=== PATIENT | male | born 1935 | race Caucasian/White ===

== ENCOUNTER 2016-06-22 14:00 | Inpatient (IN) | payer MEDICARE, BC ==
[~2016-06-22] VITALS: Ht 172.7 cm; Wt 82.1 kg
--- NOTE | ~2016-06-22 | HP ---
PATIENT'S NAME: TRESSA COFFEY [facility] AGE: 81 Y [address] ROOM: G[address] [place], [place] [address] LOCATION[facility] ADMIT DATE: 06/22/2016 History & Physical DISCHARGE DATE: FAMILY PHYSICIAN: PHYSICIAN, UNKNOWN ATTENDING PHYSICIAN: Chrissie Denise DATE OF SERVICE: HISTORY OF PRESENT ILLNESS: Mr. Coffey is an 81-year-old male patient whom I first saw in April in [facility] for congestive heart failure, severe LVH, ejection fraction of 30%, moderate , mild AR, moderate pulmonary hypertension with pulmonary pressures in the mid 50s. He has had a catheterization in [place] in 2014, which showed mild coronary artery disease to moderate coronary artery disease and severely increased LVEDP. He has not been most compliant with his medications. When I saw him, I offered to admit him to [place], but he did not want to do so and he was hospitalized in [place] and was diuresed. Since then, he had gone home a couple of times having been readmitted. Last time in May when I saw him in the hospital, he had at that time made up his mind to become a hospice patient. Today, he comes to the clinic saying that he wants to revoke that hospice patient status and wants to try and improve his cardiac condition the best we can as he says he is "miserable." He admits to having shortness of breath and he is in functional class 4. He has no chest pains. He denies any paroxysmal nocturnal dyspnea or orthopnea. His echo did show possible presence of pressure overload of the RV. He has been orthopneic for a number of years. He has had a lot of swelling in his ankles for at least 2 years. He is lightheaded and at times falls over when his blood pressures are too low. He denies any palpitations even though he has been on chronic atrial fibrillation. The patient has a history of hypertension. He quit smoking 10 years ago. He is not a diabetic. He has elevated cholesterol, but has no family history of premature coronary artery disease. He denies RI, angina, or nitroglycerin use. There is no history of rheumatic fever or heart murmur. He does have atrial fibrillation. MEDICATIONS: His current list of medications includes: 1. Milk of magnesia. 2. Hyoscyamine 0.125 mg sublingually for excessive secretion. 3. Dulcolax 10 mg suppositories. PATIENT'S NAME: TRESSA COFFEY [facility] AGE: 81 Y [address] ROOM: [address] [place], [place] [address] LOC[facility] ADMIT DATE: 06/22/2016 History & Physical DISCHARGE DATE: FAMILY PHYSICIAN: PHYSICIAN, UNKNOWN ATTENDING PHYSICIAN: Chrissie Denise 4. Aldactone 25 mg a day. 5. Carvedilol 25 mg half a tablet twice a day. 6. Allopurinol 300 mg a day. 7. Prednisone 10 mg once a day. 8. Levothyroxine 0.075 mg once a day. 9. Prochlorperazine 10 mg 1 tablet every 6 hours p.r.n. 10. Morphine sulfate p.r.n. 11. Tylenol p.r.n. 12. Benadryl p.r.n. 13. Digoxin 0.125 mcg daily. 14. Lasix 40 mg 1-1/2 daily and 40 mg at noon. ALLERGIES: NONE. PAST MEDICAL HISTORY: 1. Gout. 2. Appendicectomy. 3. 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 4. History of diphtheria. SOCIAL HISTORY: He lives by himself. He denies abusing alcohol, he quit drinking alcohol 20 years ago. His appetite and weight have been poor. Sleep is poor. FAMILY HISTORY: No premature coronary artery disease. REVIEW OF SYSTEMS: A 12-point review of systems reveal the following positives: 1. Corrective lenses. 2. Bilateral cataract implants. 3. Hypothyroidism. 4. Sneezing and allergies. 5. History of itching. PHYSICAL EXAMINATION: VITAL SIGNS: His blood pressure is 120s/80s, heart rate is in the 70s and irregular, respirations are 20, and afebrile. HEENT: Normal. NECK: Supple. No JVD, thyromegaly, lymphadenopathy, or carotid bruit. HEART: PMI is not well located. First and second heart sounds are irregular. There are no added sounds or murmurs. CHEST: Clear to auscultation. ABDOMEN: Soft and nontender. PATIENT'S NAME: COFFEY, TRESSA D [facility] AGE: 81 Y [address] ROOM: [address] [place] [address] [facility] ADMIT DATE: 06/22/2016 History & Physical DISCHARGE DATE: FAMILY PHYSICIAN: PHYSICIAN, UNKNOWN ATTENDING PHYSICIAN: Chrissie Denise EXTREMITIES: Reveal bilateral severe edema with blistering and weeping. CENTRAL NERVOUS SYSTEM: Appears to be intact. ASSESSMENT: 1. Severe volume overload due to congestive heart failure. 2. Ejection fraction of 30%. 3. Mild coronary artery disease. 4. 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 RECOMMENDATION: The patient wants to have his hospice status revoked and wants to have something done about his congestive heart failure and see if he can feel better as he is very miserable now. I told him that he can anticipate some improvement, but to what extent he will improve is difficult to tell. If he wants to come in, I can put him in [facility] and do our best to slowly diurese him and get most of the fluid out making sure his kidneys does not get any worse. Once medications are readjusted, we will then have to consider BiV- ICD or ICD placement given his low EF. His EKG does show complete right bundle-branch block which is probably not optimal for BiV devices. MD SIENA SHAY/jerry /[id number] D: [id number] T: [id number] HISTORY & PHYSICAL
--- NOTE | ~2016-06-22 | CATH ---
Cardiac Diagnostic + PCI Report Demographics Patient Name ERLINDA Morrow Gender Male Date of 1935 Age 81 year(s) Patient Number [id number] Date of Study 06/30/2016 Visit Number [id number] Room Number G6[address] [place] [id number] Ht 172.72 cm Wt 82.1 kg Referring Howie Primary Physician Physician Chrissie NAVA Performing [place] Secondary Physician Physician Jen NAVA Diagnostic [facility] Assisting Physician Physician Jen NAVA Interventional [facility] Physician [employer] Engineer Physician Jen NAVA Findings and Conclusions Diagnostic Findings and Conclusion 1. Severe symptomatic (Bicuspid AV) with dilated ascending aortic aneurysm 5.6 cm. AMOR 0.7 cm2, low gradient, low flow AV stenosis, SV 17, and no contractile reserve on dobutamine stress echo. 2. NYHA Class IV. 3. Recurrent CHF admissions refractory to medical treatment. Diagnostic Recommendations BAV, elderly patient with numerous comorbidities, not an ideal candidate for SAVR. If he responds well to BAV, will then w/u for TAVR. Interventional Findings and Conclusion 1. S/P BAV using zmed balloon 22/5 mm: Mean gradient decreased from 21-6 mmHg. 2. Patient asystolic post BAV recovered in 10 minutes. Interventional Recommendations 1. Will leave temporary pacemaker overnight. 2. Anemia prior to procedure - getting PRBC's x 2 units. 3. Observe in ICU overnight. 4. Continue aggressive medical therapy for CHF. Thank you Dr. Denise for allowing us to participate in the care of Mr. George. Procedure Description The patient was brought to the diagnostic cardiac catheterization-EP laboratory in the fasting, non-sedated state. Informed consent was obtained in the written and verbal form after the risks and benefits were explained. The patient had no further questions and agreed to proceed. The planned puncture-incision site(s) were shaved and prepped with Chloroprep and draped in the usual sterile manner. Conscious sedation and pain control medications were delivered by a registered nurse under physician guidance. Surface ECG rhythm, blood pressure measurement, and pulse oximetry were monitored throughout the procedure. Arterial access. The access site was infiltrated with lidocaine. The vessel was entered with the Seldinger technique. A sheath was advanced into the vessel and used for catheter placement. Perclose(s) was advanced into the artery and deployed. These are to be tied at the end of the procedure. Venous access. The access site was infiltrated with lidocaine. The vessel was entered with the Seldinger technique. A sheath was advanced into the vessel and used for catheter placement. Temporary pacing. Pacing was achieved from the right ventricular apex. Threshold verification and amplitude adjustment were performed. The temporary pacemaker was sutured, left in place and a sterile dressing was applied at the end of the procedure. Aortic valvuloplasty. Following this an AL1 catheter was advanced into the ascending aorta using the 0.35 J-wire and the J-wire was withdrawn. A straight-tipped fixed core wire was used to cross the aortic valve in a retrograde fashion and the AL1 catheter was advanced into the left ventricle and the straight tipped wire was withdrawn. Following this an exchange length Amplatzer Super Stiff wire with the shape of the left ventricular apex was advanced into the left ventricle through the AL1 and the AL1 catheter was withdrawn. For proper positioning of the wire at the LV apex without inducing sustained ventricular tachycardia, a pigtail was used and the pigtail was withdrawn. Following this an aortic balloon was placed across the aortic valve. Rapid pacing was started at the rate of 160 beats per minute and absence of 2:1 block was confirmed. The pulsed-wave pressures of less than 40 mm was achieved, rapid inflation of the balloon was performed and the balloon was stabilized across the aortic valve. After the balloon dilatation the gradient was then measured by Echo. Following this, both the balloon and the wire were withdrawn from the left ventricle and withdrawn from the body. With the help of the [id number] technique. Arterial Hemostasis: The sheath(s) was removed. Perclose(s) were tied and hemostasis was achieved. The patient was transferred to the nursing floor with continuous monitoring via cart accompanied by a nurse. The patient left the laboratory in stable condition. Diagnostic Cath Status: Urgent Procedure Procedure Type Diagnostic procedure:Angiography:, [facility] PCI procedure:Structural Heart:, Valvuloplasty:, Aortic, Support:, Temp Pacemaker Indications: Heart Failure and Aortic stenosis by Echo. The procedure was explained in detail to the patient. Risks, complications and alternative treatments were reviewed. Written consent was obtained. Medications Reviewed with Patient prior to Procedure. Angiographic Findings Dominance: Right Procedure Data Procedure Date Date: 06/30/2016Start: 09:31 AMEnd: 10:31 AM Entry Locations - Retrograde Percutaneous access was performed through the Right Femoral artery (Primary location). A 6 Fr sheath was inserted. This was exchanged for a 12 Fr sheath. Hemostasis was successfully obtained using Perclose ProGlide (Trinh). Closure Comments: Perclosed by Dr. Mattson and Edwin Earl, RT.. - Antegrade Percutaneous access was performed through the Right Femoral vein. A 6 Fr sheath was inserted. Hemostasis was successfully obtained using Suture. Closure Comments: Sutured in by Krupa Wright, RT.. Procedure Medications Order and Administration + + + +--------+ !Time !Medication !Dosage !Route ! + + + +--------+ 06/30/2016 09:11 AM !Oxygen !2 l/min ! ! + + + +--------+ 06/30/2016 09:15 AM !Versed !1 mg !I.V. ! + + + +--------+ 06/30/2016 09:19 AM !Fentanyl !50 mcg !I.V. ! + + + +--------+ !06/30/2016 09:38 AM !Versed !1 mg !I.V. ! + + + +--------+ !06/30/2016 09:38 AM !Fentanyl !25 mcg !I.V. ! + + + +--------+ !06/30/2016 09:42 AM !Oxygen !4 l/min !NC ! + + + +--------+ !06/30/2016 09:44 AM !Oxygen !6 l/min !NC ! + + + +--------+ !06/30/2016 09:50 AM !Heparin (ACC_3) !5000 units !I.V. ! + + + +--------+ !06/30/2016 10:07 AM !Protamine !43 mg !I.V. ! + + + +--------+ !06/30/2016 10:09 AM !Fentanyl !25 mcg !I.V. ! + + + +--------+ !06/30/2016 10:16 AM !Oxygen !4 l/min !NC ! + + + +--------+ Devices Used - A5 Fr. BS AL1 Diag. Catheterwas used for:LV Pressures. Contrast Material - Isovue 26811 ml Fluoroscopy Time: Diagnostic: 4:30 minutes. Total: 4:30 minutes. Fluoroscopy Dose: Diagnostic: 203 mGy. Total: 203 mGy. Estimated Blood Loss: 20 ml. Medical History Performed Procedures and Imaging Results - Stress echocardiogramwas performed. Results were: Positive. Risk/Extent of ischemia was: High risk. Allergies - Sulfa. Risk Factors The patient risk factors include:hypertension, Newly diagnoseddiabetes mellitus, last creatinine: 1.9 mg/dl, creatinine clearance: 35.41 ml/min, dyslipidemia and prior heart failure . Admission Data Admission Date: 06/22/2016 Admission Time: 03:29 PM Admit Source: Transfer [facility] Insurance Payors: Medicare. Admission Medications + +------+------+ + + + + !Medication !Dosage!Times !Last !Last !Administered !Comments ! ! ! !Per !Delivery !Delivery ! ! ! ! ! !Day !Date !Time ! ! ! + +------+------+ + + + + !Statin ! ! ! ! !Yes ! ! !(any) ! ! ! ! ! ! ! + +------+------+ + + + + !Beta ! ! ! ! !Yes ! ! !Hillary ! ! ! ! ! ! ! !(any) ! ! ! ! ! ! ! + +------+------+ + + + + Clinical Evaluation Leading to Procedure - There were no CAD presentation symptoms. - There were no anginal symptoms. Anti-anginal medications were prescribed during the past two weeks. The medication is: Beta Blockers. - The patient has been in a state of heart failure within the past two weeks. - The patient's heart failure status was assessed as NYHA Class IV, with CHF symptoms of SMITH. - The reason for the patient's lab manager visit is evaluation of cardiomyopathy and/or evaluation of left ventricular systolic dysfunction. Hemodynamics Condition: Rest O2 Consumption: Estimated: 225.01Heart Rate: 72 bpm Pressures (mmHg) +-----+ + !Site !Pressure ! +-----+ + !LV !145/15 ,19 ! +-----+ + !LV !141/16 ,21 ! +-----+ + !AO !126/55 (85) ! +-----+ + !AO !78/3 (41) ! +-----+ + !AO !98/49 (67) ! +-----+ + !AO !128/59 (85) ! +-----+ + !AO !140/71 (98) ! +-----+ + Shunts Oxygen Values O2 Capacity 116.96 O2 Consumption 225.01 Signatures dtt: JEN MEDINA dtd: 06/30/16 0931 Physician Self Edit
--- NOTE | ~2016-06-22 | ECHO ---
Transthoracic Echocardiography Report (TTE) Demographics Patient Name TRESSA COFFEY Date of Study 06/22/2016 Patient Number [id number] Visit Number [id number] Date of 1935 Room Number G6313 Gender Male Number Age 81 year(s) Referring Bookbinder Apprentice Drake MENDOZAT, RDCS Physician Neida Physician Interpreting Howie Dickens MD Manager Solution Physician Supervising Ordering Howie Dickens MD, MD/MLP Physician Nurse Stress Classified Advertising Supervisor Conclusions Contractility Score Summary Hypokinesis of the Mid infero-septal, the Basal trent-septal and the Basal infero-septal segments. Summary The estimated left ventricular ejection fraction is 35% without WMAs.Severe concentric left ventricular hypertrophy.Normal internal dimension. Mildly-moderately reduced right ventricular function. The left atrium is mildly dilated. The right atrium is mildly dilated. Mild mitral regurgitation by color Doppler. There is moderate aortic stenosis by the Continuity Equation. The peak velocity is 2.57 m/s, the mean gradient is 15 mmHg, and the valve area based on the continuity equation is 0.98 cm2, stroke volume index is 43.69 ml/m2. Trivial AR. Mild tricuspid regurgitation by color Doppler. VA. The aortic root appears mildly dilated. The maximum diameter measures 4.1 cm. Procedure Type of Study TTE procedure:2D Echocardiogram, M-Mode, Doppler , Color Doppler. Procedure Date Date: 06/22/2016 Start: 04:43 PM Study Location: Echo Lab Technical Quality: Adequate visualization Indications:Non-ischemic cardiomyopathy. Appropriate Use Criteria: 9 Patient Status: Routine HR: 51 bpm BP: 128/65 mmHg Allergies - No known allergies. M-Mode/2D Measurements LV Diastolic Dimension: 3.6 cm LV Systolic Dimension: 3.16 cm LV Septum Diastolic: 2.4 cm LV PW Diastolic: 1.65 cm AO Root Dimension: 4.1 cm Cardiac Output: 2.23 l/min AV Cusp Separation: 0.8 cm RV Diastolic Dimension: 2.47 cm LA volume: 71 ml LVOT: 2.2 cm RV Base: 3.21 cm LVOT VTI: 11.5 cm RV Mid: 3.24 cm LV Stroke volume: 43.69 ml TAPSE: 1.06 cm TDI-S': 9.58 cm/s Doppler Measurements AV Peak Velocity: 2.31 m/s MV Peak E-Wave: 0.82 m/s AV Peak Gradient: 21.34 mmHg AV Mean Gradient: 15 mmHg MV P1/2t: 62 msec LVOT Peak Velocity: 0.49 m/s TR Velocity:2.41 m/s PV Peak Velocity: 0.67 m/s TR Gradient:23.23 mmHg PV Peak Gradient: 1.77 mmHg Estimated RAP:10 mmHg Estimated PASP: 33.23 mmHg Estimated RVSP: 33 mmHg Findings Left Ventricle Severe concentric left ventricular hypertrophy with moderate to severely reduced EF of about 35% without WMAs.LV internal dimension is normal. Right Ventricle Mildly-moderately reduced right ventricular function. Left Atrium Mildly dilated LA by visual assessment. Right Atrium The right atrium is mildly dilated. Mitral Valve Mild mitral regurgitation by color Doppler. Aortic Valve The aortic valve is moderately sclerotic. There is trivial aortic regurgitation by color Doppler. There is moderate aortic stenosis by the Continuity Equation. The peak velocity is 2.57 m/s, the mean gradient is 15 mmHg, and the valve area based on the continuity equation is 0.98 cm2, stroke volume index is 43.69 ml/m2. Tricuspid Valve Mild tricuspid regurgitation by color Doppler. Pulmonic Valve Mild pulmonic valve regurgitation by color Doppler. Pericardial Effusion No evidence of pericardial effusion. Miscellaneous The aortic root appears mildly dilated. The maximum diameter measures 4.1 cm. Pleural Effusion Pleural effusion present. Contractility Score LV regional wall motion:(0-Non visualized 1-Normal 2-Hypokinesis 3-Akinesis 4-Dyskinesis 5-Aneurysm) Signature dtt: Chrissie Denise dtd: 06/22/16 1643 Physician Self Edit
--- NOTE | ~2016-06-22 | CON ---
PATIENT'S NAME: TRESSA COFFEY [facility] AGE: 81 Y [address] ROOM: [place] [address] LOCATION: GPCU ADMIT DATE: 06/22/2016 Consultation DISCHARGE DATE: FAMILY PHYSICIAN: PHYSICIAN, UNKNOWN ATTENDING PHYSICIAN: Chrissie Denise DATE OF CONSULTATION: 06/24/2016 REFERRING PHYSICIAN: Naeem Killian MD PALLIATIVE CARE REFERRAL LOCATION: [facility]. This is a palliative care referral for goals of care and patient and family support. HISTORY OF PRESENT ILLNESS: This 81-year-old male was admitted on 06/22/2016 with increasing shortness of breath. He is a known patient of Dr. Denise and has decompensated heart failure. He has severe LVH, ejection fraction of 30%, moderate , mild AR, and moderate pulmonary hypertension. Pulmonary pressures in the mid-50s. He had a catheterization in [place] in 2014 that showed mild coronary artery disease, moderate coronary artery disease, and severely increased LVEDP. The patient was recently admitted to hospice due to not wanting to have a lot of aggressive treatments done, but became more short of breath and feeling terrible and had seen Dr. Denise and wanted to see if something could be done to help his shortness of breath. So, he was admitted on 06/22/2016 for diuresing. He is currently on a Lasix drip and 2 vasopressors for hypertension. He denies any pain or shortness of breath at rest. No short of breath with activity. Denies any abdominal pain. No problems with diarrhea. Some problems with constipation. The patient is a poor historian, forgetful. PAST MEDICAL HISTORY: Chronic systolic heart failure, gout, essential hypertension, and COPD. ALLERGIES: NONE. HOME MEDICATIONS: 1. Milk of magnesia. 2. Hyoscyamine 0.125 mg sublingual for excessive secretions. PATIENT'S NAME: TRESSA COFFEY [facility] AGE: 81 Y [address] ROOM: [place] [address] LOCATION: GPCU ADMIT DATE: 06/22/2016 Consultation DISCHARGE DATE: FAMILY PHYSICIAN: PHYSICIAN, UNKNOWN ATTENDING PHYSICIAN: Chrissie Denise 3. Dulcolax 10 mg suppository. 4. Aldactone 25 mg daily. 5. Carvedilol 25 mg half tab twice a day. 6. Allopurinol 300 mg daily. 7. Prednisone 10 mg daily. 8. Levothyroxine 0.075 mg daily. 9. Compazine 10 mg 1 tab every 6 hours p.r.n. nausea. 10. Morphine sulfate p.r.n. 11. Tylenol p.r.n. 12. Benadryl p.r.n. 13. Digoxin 0.125mcg daily. 14. Lasix 40 mg 1-1/2 tabs daily in the a.m. and 40 mg at noon. SOCIAL HISTORY: Never . He has 2 sisters. Sister, Estefani, is his medical power of business dean. She lives in [place]. No alcohol use. Quit drinking 20 years ago. History of chewing tobacco. FAMILY HISTORY: Poor historian on family history. Sister stated heart disease in mother and father. REVIEW OF SYSTEMS: A complete review of systems was done and is negative except as mentioned in HPI and listed below. GASTROINTESTINAL: Appetite fair. He states he is hungry, but does not eat much, just drinks liquids and is forgetful if he ate. He states he has problems with constipation. Last bowel movement was 06/23/2016. PSYCHIATRIC: Forgetful, unable to recall. Date, he thinks is in the . Thought he was in [place], but then recalled that he was in [place]. Unable to recall sisters' names. Sister states normally he is somewhat forgetful, but is oriented to time and place. PHYSICAL EXAMINATION: GENERAL: This is an 81-year-old, frail, ill appearing male. Alert and oriented to name, not place and time. Answers questions slowly, hard to stay focused. VITAL SIGNS: Temperature 97.6, pulse 79, respirations 16, blood pressure 96/65, O2 saturation is 95% on oxygen 1 L, he is 5 feet 8 inches, weighs 187 pounds with a BMI of 28.2. HEENT: Normocephalic and atraumatic. Sclerae are nonicteric. Conjunctivae are pale pink. Mouth is pink and moist without exudate. Tongue is slightly coated with white patches. No patches noted on cheeks. No soreness. RESPIRATORY: Clear and diminished bilaterally. Breath sounds are even and regular, unlabored at rest. PATIENT'S NAME: TRESSA COFFEY [facility] AGE: 81 Y [address] ROOM: [address] [place] [address] LOCATION: GPCU ADMIT DATE: 06/22/2016 Consultation DISCHARGE DATE: FAMILY PHYSICIAN: PHYSICIAN, UNKNOWN ATTENDING PHYSICIAN: Chrissie Denise CARDIAC: S1, S2 without murmurs or bruits. 2+ lower extremity edema. ABDOMEN: Rounded, slightly firm. Tender in right upper quadrant with palpitation. NEUROLOGIC: GROSSLY intact. Follows commands. MUSCULOSKELETAL: Appropriate range of motion. EXTREMITIES: No cyanosis or deformities. PSYCHIATRY: Palliative performance scale is 40%, mainly in chair or bed. Total care, unable to do any activity. Extensive disease. Intake is reduced, minimal to sips. Conscious level is drowsy with some periods of confusion. IMPRESSION: Dyspnea, weakness, fatigue, and confusion. PLAN: 1. Met with the patient. The patient is very fatigued, forgetful. Does state that he wanted to come to the hospital to get help, so he can breathe easier. I did talk with sister, Estefani, who is the medical power of business dean. She is coming on Tuesday. She has a good understanding of what is going on with her brother and is a good support for him. Answered questions and concerns. 2. Code status and advanced directives: The patient is currently DO NOT RESUSCITATE/DO NOT INTUBATE. A copy of advance directive is on the chart with sister, Estefani Castro, is his medical power of business dean. Answered questions and concerns. Encouraged sister to call if need support. Thank you for allowing me to assist with this patient and family. Total time was 45 minutes with 40 minutes for counseling and coordination of care. ENA LEY NP FOR MD LENKA MACHUCA/jerry /[id number] d: 06/25/16 0953 t: 07/12/16 1100, CONSULTATION REPORT
--- NOTE | ~2016-06-22 | DS ---
PATIENT'S NAME: TRESSA GEORGE [facility] AGE: 81 Y [address] ROOM: [place] [address] LOCATION: GPCU ADMIT DATE: 06/22/2016 Discharge Summary DISCHARGE DATE: 07/07/2016 FAMILY PHYSICIAN: Physician, Unknown ATTENDING PHYSICIAN: Chrissie Denise PRINCIPAL DISCHARGE DIAGNOSES: End-stage systolic congestive heart failure. SECONDARY DIAGNOSES: 1. Nonischemic cardiomyopathy with the EF of 30% documented prior to admission. 2. Coronary artery disease, mild. 3. Cardiogenic shock. 4. 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 5. Hyperkalemia. 6. Anasarca. 7. Left pleural effusion status post chest tube. 8. Bullous impetigo. 9. Metabolic encephalopathy. 10. Atrial fibrillation. 11. Thrombocytopenia. 12. Normocytic anemia. 13. Chronic steroid dependent. CONSULTATIONS: 1. Hematology, Dr. Naeem Killian for anemia and thrombocytopenia of uncertain etiology on 06/25/2016. 2. Palliative Care, Madeleine Carter, on 06/24/2016. 3. Cardiothoracic Surgery for pleural effusion, Dr. Fidencio Markham, on 06/28/2016. 4. Nephrology, Dr. Mcneill for elevated BUN and creatinine. 5. Hospitalist, on 06/23/2016. PROCEDURES: 1. Left thoracentesis, 06/28/2016 with productive of 1100 mL of yellow tinged serous fluid. 2. On 07/02/2016, insertion of 14-Mongolian left chest tube. BRIEF HISTORY: Mr. George is an 81-year-old, male who is a patient known to Dr. Denise from the [facility] with his history of congestive heart failure, severe left ventricular hypertrophy, and EF of 30%, moderate aortic stenosis, mild aortic regurg and moderate pulmonary hypertension with pulmonary pressures in the mid 50s. The patient had been on hospice after admissions to the hospital in [place] where he was diuresed for PATIENT'S NAME: TRESSA GEORGE [facility] AGE: 81 Y [address] ROOM: [place] [address] LOCATION: GPCU ADMIT DATE: 06/22/2016 Discharge Summary DISCHARGE DATE: 07/07/2016 FAMILY PHYSICIAN: Physician, Unknown ATTENDING PHYSICIAN: Chrissie Denise fluid overload caused by his heart failure and perhaps some medical noncompliance with medication. He became a hospice patient in May,, but presented to the [place] [facility] on 06/22/2016 requesting admission in attempt to improve his cardiac status because he was "miserable." However despite efforts here at diuresis, his fluid status did not significantly improve. When I saw the patient on Tuesday, his anasarca was severe. His potassium was elevated to 5.2, his creatinine was 2.2. He had white count of 13.3 with increase in bands of 11%. At that time, he had increasing lethargy. His oxygen saturation was going down and he was found to have high white blood cell count in the urinalysis and he was started empirically on Rocephin for possible urinary tract infection. However, the urine culture was negative. In terms of his acute kidney injury with chronic kidney disease, stage III, he became oliguric over the last several days and there was a plan to start albumin if the patient shows further care. Because of his confusion, his sisters who is power of immigration attorney discussed this with the palliative care nurse who has been on board for most of the hospitalization and was decided that he would be transferred back to [place] on comfort measures and hospice care. He was placed on comfort care just today at about 3 o'clock in the afternoon. INSTRUCTIONS AT DISCHARGE: 1. Diet: As tolerated. 2. Activity: Bed rest. DISCHARGE MEDICATIONS: Include: 1. Levothroid 25 mcg daily. 2. Colace 100 mg p.o. b.i.d. 3. Tylenol every 4 hours p.r.n. 4. Atropine drops sublingual p.r.n. excess secretions. 5. Dulcolax suppository p.r.n. 6. Benadryl p.r.n. 7. Guaifenesin 600 mg p.o. b.i.d., p.r.n. 8. Haldol 1 mg subcu for delirium. 9. Levsin 0.125 mg sublingual every 4 hours as needed. 10. Ativan 0.5 mg sublingual p.r.n. restlessness and breathlessness. 11. Milk of magnesia 30 mL every day p.r.n. constipation. 12. Roxanol 5 mg sublingual every hour p.r.n. pain. 13. Morphine sulfate 1-2 mg subcu every hour p.r.n. for pain or shortness of breath. 14. Compazine suppository 25 mg every 12 hours p.r.n. nausea and vomiting. 15. Zinc oxide topically p.r.n. for skin care or Calmoseptine. 16. Coreg 3.125 mg p.o. b.i.d. PATIENT'S NAME: TRESSA GEORGE [facility] AGE: 81 Y [address] ROOM: [place] [address] [facility] ADMIT DATE: 06/22/2016 Discharge Summary DISCHARGE DATE: 07/07/2016 FAMILY PHYSICIAN: , Unknown ATTENDING PHYSICIAN: Chrissie Denise 17. Prednisone 10 mg daily. 18. Spironolactone discontinued. 19. Lasix discontinued. 20. Ipratropium albuterol nebs every 4 hours p.r.n. dyspnea. 21. Eucerin for topical skin care p.r.n. CONDITION AT DISCHARGE: Poor. Greater than 30 minutes was spent in the discharge process. Thank you very much for your assistance with this dictation. ANIKA LANDEROS MD LM/jerry /[id number] d: 07/08/16722 t: 07/16/16 1810, DISCHARGE SUMMARY
--- NOTE | ~2016-06-22 | ECHO ---
Stress Echocardiography Report Demographics Patient Name TRESSA COFFEY Date of Study 06/29/2016 Patient Number [id number] Visit Number [id number] Date of 1935 Room Number G6313 Gender Male Number Age 81 year(s) Referring Howie Dickens Continuous Drier Helper Ramiro Newell RVT Physician MD Aly Torres Physician Interpreting Howie Dickens Composition Molder Physician Supervising Howie Dickens Ordering Howie Dickens MD/KYLIE NAVA Physician Nurse Gregor Nicolas Stress Road Cutter Leidy Andrews RN Conclusions Summary Low flow ,low gradient low EF for dobutamine evaluation of the valve. Pre dobutamine :M mm Hg. Dobutamine 20 ellen:M mm Hg. MAPSE :9 mm. Values most consistent with severe to critical true valvular . Procedure Type of Study Stress procedure:Pharm Stress Echo w/o Contrast. Procedure Date Date: 06/29/2016 Start: 01:32 PM Study Location: Inpatient Portable Technical Quality: Adequate visualization Indications:AAA. Appropriate Use Criteria: 9 Patient Status: Routine Allergies - No known allergies. Risk Factors - The patient's risk factor(s) include: atrial fibrillation, diabetes mellitus and dyslipidemia. Stress Predicted HR: 139 bpm Procedure Medications - Dobutamine I.V. 5 mcg/kg/min. - Dobutamine I.V. 10 mcg/kg/min. - Dobutamine I.V. 20 mcg/kg/min. - dobutamine discontinued . M-Mode/2D Measurements LVOT: 2.1 cm LVOT VTI: 10.1 cm LV Stroke volume: 34.96 ml Doppler Measurements AV Peak Velocity: 2.59 m/s AV Peak Gradient: 26.83 mmHg AV Mean Gradient: 19 mmHg LVOT Peak Velocity: 0.6 m/s Signature dtt: Chrissie Denise dtjoyce: 06/29/16 1332 Physician Self Edit
--- NOTE | ~2016-06-22 | CON ---
PATIENT'S NAME: BRITTON GEORGE [facility] AGE: 81 Y [address] ROOM: [address] [place], [place] [address] LOCATION: GPCU ADMIT DATE: 06/22/2016 Consultation DISCHARGE DATE: FAMILY PHYSICIAN: PHYSICIAN, UNKNOWN ATTENDING PHYSICIAN: Chrissie Denise REFERRING PHYSICIAN: Naeem Killian MD This is a consult to Dr. Denise. Britton George is an 81-year-old man with uncharacterized anemia and thrombocytopenia. HISTORY OF PRESENT ILLNESS: Obtained from Mr. George, whose history was of very dubious veracity upon admission, but has been more helpful as his symptoms have been better controlled; from his sister, Ms. Castro; from records forwarded from the [facility]; from visiting with Dr. Malik Kennedy; and from reviewing the patient's [facility] chart. The patient was in the [facility] and has been there since mid April. The patient was evaluated by Dr. Denise for options regarding treatment of his congestive heart failure. The patient was on the Hospice Service at the time Dr. Denise saw him. The patient was not independent. The patient's state of health has declined precipitously in the last 6 months. Prior to that, the patient was independent and lived in his own home. He was retired. He was a lifelong bachelor. His medical problems were not particularly disabling, although his power of commercial litigation attorney was not closely acquainted with his medical history. In any case, the patient saw Dr. Denise in consultation at his [facility]. Dr. Denise had seen the patient 2 months earlier and documented the presence of severe systolic congestive heart failure with an ejection fraction of 30%, moderate aortic stenosis, mild aortic regurgitation, and moderate pulmonary hypertension in the mid 50s. Dr. Denise acknowledged that the patient had mild coronary artery disease. Dr. Denise made the point the patient had been hospitalized in [place] and underwent diuresis at that time, but had been readmitted on a couple of occasions and was placed on hospice. The patient made the point to Dr. Denise that he wanted to revoke the hospice status and wanted to improve his cardiac condition because he was miserable with dyspnea at rest. The patient denied orthopnea, although he had been orthopneic for a number of years. The patient had anasarca. Dr. Denise admitted him to [facility] for diuresis, a dobutamine infusion, and consideration of ICD placement. When Dr. Denise admitted the patient, the platelet count was 48,000, the white count was 9.6 with 79% segs and 15% bands, hemoglobin was 10.9, the MCV was 87. On 04/03/2014, upon hospitalization in [facility], the platelets were 167,000, white PATIENT'S NAME: BRITTON GEORGE [facility] AGE: 81 Y [address] ROOM: [place] [address] LOCATION: GPCU ADMIT DATE: 06/22/2016 Consultation DISCHARGE DATE: FAMILY PHYSICIAN: PHYSICIAN, UNKNOWN ATTENDING PHYSICIAN: Chrissie Denise count was 8800, hemoglobin was 14.6, MCV was 94, and the platelets were 167,000. Dr. Kennedy forwarded records from [facility]. The patient's anemia was first noted in March 2016. His platelets were 171,000 on 05/25/2016, but they fell to 117,000 on 05/26/2016. Neither the patient nor his power of commercial litigation attorney are aware of any history of blood abnormalities. ACTIVE MEDICAL PROBLEMS, CHRONIC AND DIAGNOSED: 1. Systolic heart failure as noted above. 2. Moderate aortic stenosis and aortic regurgitation as well as moderate pulmonary hypertension. 3. ASHD "mild to moderate.". 4. Tobacco. The patient chewed tobacco in the past, but has abstained. 5. Hypothyroidism. 6. Gout. The patient apparently had podagra 1-1/2 years ago and has been on allopurinol. 7. Paroxysmal atrial fibrillation. 8. Bifascicular block with a left anterior hemiblock and right bundle branch block. 9. GERD. 10. Essential arterial hypertension. 11. ? Subacute peroneal thrombosis in the past. 12. ?Dementia due to documented severe cerebral atrophy and periventricular senescent white matter disease on CAT scan of the brain. 13. 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 14. ASVD with a thoracic aortic aneurysm at the root of the thoracic aorta, 5/7 cm, >2.8 ratio to BSA, therefore, all other things equal, a surgical candidate. ACUTE MEDICAL ILLNESSES (RESOLVED), PAST SURGERIES, INJURIES: 1. In 1953 - appendectomy. 2. In 2014 - atrial fibrillation with rapid ventricular response, requiring hospitalization for treatment of congestive heart failure. 3. Diphtheria. 4. Apparent history of amoebic dysentery in [facility]. MEDICATIONS: Upon hospitalization; 1. Acetaminophen. 2. Allopurinol 300 mg daily. 3. Dulcolax. 4. Carvedilol 6.25 mg p.o. b.i.d. 5. Digoxin 0.125 mg p.o. daily. 6. Diphenhydramine. 7. Eucerin. 8. Furosemide 40 mg daily. 9. Hyoscyamine 0.125 mg p.o. every 4 hours. 10. Levothyroxine sodium 0.075 p.o. q.h.s. 11. Lisinopril 2.5 mg p.o. daily. 12. Milk of magnesia 30 mL p.o. b.i.d. 13. Morphine sulfate 10 mg every hour p.r.n. for pain or dyspnea. 14. Prednisone 10 mg daily. PATIENT'S NAME: BRITTON GEORGE [facility] AGE: 81 Y [address] ROOM: [place] [address] LOCATION: [facility] ADMIT DATE: 06/22/2016 Consultation DISCHARGE DATE: FAMILY PHYSICIAN: PHYSICIAN, UNKNOWN ATTENDING PHYSICIAN: Chrissie Denise 15. Prochlorperazine 10 mg p.o. every 6 hours. 16. Spironolactone 25 mg daily. ADVERSE REACTIONS TO MEDICATIONS, TRANSFUSIONS, ALLERGIES: 1. Sulfa. 2. The patient has no documented history of transfusions. TOBACCO: The patient chewed tobacco, but has abstained. ALCOHOL: The patient abstained from alcohol now, but drank only moderately in the past. FAMILY HISTORY: Negative for hematologic disorders or cancer. SOCIAL HISTORY: The patient was born and raised in [place], [facility]. The patient has retired for 2 years. He went to [facility] in [facility] after he attended [employer] in the 1960s. 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 The patient lived in [facility], [place], and [place]. He had a history of dysentery. He is not a churchgoer. He has a sister, who is his power of commercial litigation attorney and lives in [place]; he has a sister in [place], [place]; and a sister in [place]. He is not on speaking terms with another sister. He is a lifelong bachelor. He is not a orthodox goer. REVIEW OF SYSTEMS: The patient states on one occasion he has been troubled with severe pruritus for 8 months. On another occasion, he states he has had pruritus for decades, since he was in [place], and this has been investigated, but the cause has never been elucidated. PHYSICAL EXAMINATION: VITAL SIGNS: Pulse 76, blood pressure 130/65, respiratory rate 18, temperature 97.9, height 68 inches, and weight 84.2 kg (186 pounds, BMI 28.2 kg/m2). GENERAL: Well-developed, overweight, unkempt, 81-year-old male, in mild distress with tachypnea. HEENT: The teeth are in poor repair. LYMPH NODES: None palpable. NECK: Without JVD or carotid bruits. SKIN: Nevi, angiomas, acrochordons. CHEST: Decreased breath sounds with basilar crackles. CV: Regular rhythm with no murmurs or bruits. There may be an S3 gallop. BREASTS: Bilateral gynecomastia. PATIENT'S NAME: BRITTON GEORGE [facility] AGE: 81 Y [address] ROOM: [place] [address] LOCATION: [facility] ADMIT DATE: 06/22/2016 Consultation DISCHARGE DATE: FAMILY PHYSICIAN: PHYSICIAN, UNKNOWN ATTENDING PHYSICIAN: Chrissie Denise ABDOMEN: No masses, tenderness, or megaly. GENITALIA AND RECTAL: Leary catheter in place. EXTREMITIES: Edema to the elbows and thighs. The patient has compression devices in place. SKIN: Xerodermatitis. The patient appears to have neurotic excoriations, which are quite pronounced around the right knee and in the left upper quadrant of the abdomen. NEURO: Strength 4/5 throughout. Deep tendon reflexes not assessed. The patient has a fluctuating level of consciousness. He asked the examiner to get him a [place] [employer]. The patient knew his name and birthday and knew he was in [place], but he not did know the year or the president or the month. He was unable to respond to most questions about his medical situation. IMPRESSION: 1. Uncharacterized thrombocytopenia and normocytic anemia, which has developed since March 2014. Indeed, the thrombocytopenia has just developed over the past month. 2. The patient may have end-stage systolic heart failure. He was on hospice. The patient is not entirely oriented and his power of commercial litigation attorney was concerned about his situation and wanted to be informed. It is reasonable to involve Palliative Care to assist. 3. Many of his medicines are sometimes associated with thrombocytopenia (furosemide, lisinopril, and spironolactone), but only rarely. 4. Given the patient's pruritus and hematologic abnormalities, one thinks of the possibility of a lymphoproliferative disorder or mastocytosis. 5. The first question is how to address how much testing we should do in this gentleman with severe systolic congestive heart failure, severe enough to land him on the Hospice Service. We will need to visit with him when his [id number] is present. RECOMMENDATIONS: Diagnostic: 1. CBC, reticulocyte count, ferritin, iron TIBC, folate, B12. 2. Hemoccult stools. 3. Serum tryptase. 4. Visit with the patient and his power of commercial litigation attorney when she is present. Treatment: 1. No antineoplastic therapy and no therapy addressing his hematologic abnormalities at this point. The thrombocytopenia is mild. PATIENT EDUCATION: Visited with the patient's [id number] about his situation. PATIENT'S NAME: BRITTON GEORGE [facility] AGE: 81 Y [address] ROOM: [address] [place] [id number] LOCATION: GPCU ADMIT DATE: 06/22/2016 Consultation DISCHARGE DATE: FAMILY PHYSICIAN: PHYSICIAN, UNKNOWN ATTENDING PHYSICIAN: Chrissie Denise MD ALLYSON STINSONB/modl /[id number] CC: MD joyce Butler: 06/26/16 0101 t: 06/27/16 1315, CONSULTATION REPORT
--- NOTE | ~2016-06-22 | CON ---
PATIENT'S NAME: TRESSA COFFEY [facility] AGE: 81 Y [address] ROOM: [address] [address] LOCATION: GPCU ADMIT DATE: 06/22/2016 Consultation DISCHARGE DATE: FAMILY PHYSICIAN: PHYSICIAN, UNKNOWN ATTENDING PHYSICIAN: Chrissie Denise DATE OF CONSULTATION: 07/01/2016 REFERRING PHYSICIAN: Naeem Killian MD REQUESTING PHYSICIAN: Chrissie Denise MD REASON FOR CONSULTATION: Elevated BUN and creatinine. HISTORY OF PRESENT ILLNESS: The patient is an 81-year-old white male with a history of chronic congestive heart failure related to systolic dysfunction. His EF is 20%-25%. He also has aortic stenosis and aortic regurgitation. The patient came in the hospital with increasing shortness of breath, and he was diagnosed with left- sided pleural effusion. The patient underwent valvuloplasty yesterday. I noticed that his creatinine was 1.3-1.8 in 2014. Creatinine was 1.8 on admission and today is 1.9. Dr. Denise was concerned and asked me to see this gentleman for a Nephrology consultation. He denies taking any non- steroidals or CLAY-2 inhibitors at home. His outpatient medication did include lisinopril 5 mg a day. He is also on furosemide 40 mg a day. REVIEW OF SYSTEMS: GENERAL: He denies any fever, chills, or rigors. HEENT: Denies any sore throat or sinus congestion. CARDIOVASCULAR: Denies any chest pain. He has dyspnea on exertion. RESPIRATORY: Denies any cough or sputum production. GI: Denies any abdominal pain or nausea. He has poor appetite. : Denies any dysuria or frequency. MUSCULOSKELETAL: Denies any joint pain or swelling. SKIN: Denies rash or pruritus. IMMUNOLOGIC: Denies any allergies or hay fever. LYMPHATICS: Denies any lymph node enlargement. HEMATOLOGIC: Denies any easy bruising. ENDOCRINE: Denies any heat or cold intolerance. PAST MEDICAL HISTORY: Chronic congestive heart failure, gout, essential hypertension, COPD, left- sided pleural effusion, aortic regurgitation, aortic stenosis, and pulmonary hypertension. PATIENT'S NAME: TRESSA COFFEY [facility] AGE: 81 Y [address] ROOM: [address] [place], [place] [id number] LOCATION: GPCU ADMIT DATE: 06/22/2016 Consultation DISCHARGE DATE: FAMILY PHYSICIAN: PHYSICIAN, UNKNOWN ATTENDING PHYSICIAN: Chrissie Denise SURGICAL HISTORY: Appendectomy. ALLERGIES: NO KNOWN DRUG ALLERGIES. MEDICATIONS: 1. Zosyn 3.375 g IV q.8 hours. 2. Colace 100 mg twice a day. 3. Prednisone 15 mg twice a day. 4. Fergon 325 mg a day. 5. Digoxin 125 mcg a day. 6. Levothyroxine 75 mcg a day. 7. Lipitor 40 mg a day. 8. Lopressor 6.25 mg every day. 9. MiraLax p.r.n. 10. Protonix 40 mg a day. 11. Vitamin D 1000 International Units a day. 12. Zyloprim 300 mg a day. 13. NovoLog by sliding scale. SOCIAL HISTORY: The patient lives in [place], [place]. He chewed tobacco one can per day for the last 40 years, quit 34 years ago. He smoked for 45 years. Quit drinking 17 years ago. FAMILY HISTORY: No family history of kidney disease or dialysis. PHYSICAL EXAMINATION: GENERAL: An elderly white male lying in the hospital bed, not in acute distress. VITAL SIGNS: Temperature 96.8, pulse is 93, systolic blood pressure 144 and diastolic 66. HEENT: Head normocephalic. Pupils are round and equal. Normal eyelids and conjunctivae. Oral cavity clear. Loss of teeth. NECK: Trachea is central. No thyromegaly. No bruit. Unable to evaluate jugular venous pulsation. HEART: Sounds are audible in all the areas without any gallop or murmur. There is no pericardial rub. Pulses irregularly regular. LUNGS: Clear to auscultate anteriorly. No intercostal retraction. ABDOMEN: Soft and nontender. Could not palpate any liver or spleen. EXTREMITIES: He has no clubbing or cyanosis. The patient has multiple blisters on both the lower extremities. There is sign of bleeding and PATIENT'S NAME: TRESSA COFFEY [facility] AGE: 81 Y [address] ROOM: [address] [address] LOCATION: GPCU ADMIT DATE: 06/22/2016 Consultation DISCHARGE DATE: FAMILY PHYSICIAN: PHYSICIAN, UNKNOWN ATTENDING PHYSICIAN: Chrissie Denise excoriation on the area. He also has 2+ edema up to his ankle. SKIN: No sign of vasculitis. LYMPHATICS: Did not examine lymphatics. HIGHER PSYCHIATRIC FUNCTION: Normal speech and memory. LABORATORY DATA: Blood work shows sodium 136, potassium 4.7, chloride 100, bicarbonate 27, BUN of 48, creatinine 1.9, calcium 8.0, albumin 2.7, bilirubin 2.1. Urinalysis shows 1+ protein, wbc 20-50, rbc 50-100. Uric acid level of 4.4. ASSESSMENT: 1. Acute on chronic kidney injury. Most likely this is again worsening of his cardiac status. The patient came in with increasing shortness of breath and decompensated heart failure. He also underwent valvuloplasty procedure. 2. Stage 3 chronic kidney disease. Most likely from cardiorenal syndrome. His hemoglobin A1c is 7.9, but he has been on prednisone. He has no history of diabetes. The patient has minimal proteinuria. 3. Aortic stenosis. 4. Pulmonary hypertension. 5. Chronic congestive heart failure from systolic dysfunction. 6. Coronary artery disease. 7. History of left pleural effusion. PLAN: Creatinine is up to 1.9. Baseline creatinine is probably around 1.5. The patient has congestive heart failure from systolic dysfunction. Please consider putting him back on low-dose LELO inhibitor like lisinopril 5 mg with close monitoring of his creatinine and potassium. I will check his urine for biiapkl-ij-zmygjpfgms ratio, follow renal function very closely, and we will also check a renal ultrasound. I did advice the patient to avoid all non- steroidals or CLAY-2 inhibitors. I did tell him that his kidney function is less than 50% of what it should have been for his age and sex. I would like to thank Dr. Denise for allowing me to participate in this patient's care. M TIAGO CRUMP MD PATIENT'S NAME: TRESSA COFFEY [facility] AGE: 81 Y [address] ROOM: [place] [address] [facility] ADMIT DATE: 06/22/2016 Consultation DISCHARGE DATE: FAMILY PHYSICIAN: PHYSICIAN, UNKNOWN ATTENDING PHYSICIAN: Chrissie Denise/jerry /[id number] CC: MD Miller Kumari PA d: 07/01/168 t: 07/04/16 1058, CONSULTATION REPORT
--- NOTE | ~2016-06-22 | OR ---
PATIENT'S NAME: TRESSA [facility] AGE: 81 Y [address] ROOM: [place] [address] LOCATION: GPCU ADMIT DATE: 06/22/2016 OR/Procedure Report DISCHARGE DATE: FAMILY PHYSICIAN: PHYSICIAN, UNKNOWN ATTENDING PHYSICIAN: Chrissie Denise SURGEON: Fidencio Faria DO SIGNAL WIRER: DATE OF PROCEDURE: 06/28/2016 PREOPERATIVE DIAGNOSIS: Left pleural effusion. POSTOPERATIVE DIAGNOSIS: Left pleural effusion. PROCEDURE: Left thoracentesis. BRIEF HISTORY: Mr. George is an 81-year-old white male with the above-noted diagnosis. He has been marked with ultrasound for the thoracentesis. This reji was then sterilely prepped and draped and 1% lidocaine was used to infiltrate the area. A stab incision was made in the infiltration spot and thoracentesis catheter inserted over the needle and the catheter advanced and the needle withdrawn, connected to the Vacutainer bottle and 1100 mL of yellow tinged serous fluid was evacuated without difficulty. The patient remained stable throughout the procedure with stable saturations. The catheter was removed without difficulty and chest x-ray is pending. Sterile dressing was applied. He tolerated the procedure well. FIDENCIO FARIA DO MCB/modl /[id number] d: 06/29/161926 t: 06/30/16 0743, OPERATIVE SUMMARY
--- NOTE | ~2016-06-22 | OR ---
PATIENT'S NAME: TRESSA GEORGE [facility] AGE: 81 Y [address] ROOM: [place] [address] LOCATION: GPCU ADMIT DATE: 06/22/2016 OR/Procedure Report DISCHARGE DATE: FAMILY PHYSICIAN: PHYSICIAN, UNKNOWN ATTENDING PHYSICIAN: Chrissie Denise SURGEON: Fidencio Faria DO BABY ATTENDANT: DATE OF PROCEDURE: 07/02/2016 PREOPERATIVE DIAGNOSIS: Recurrent left pleural effusion. POSTOPERATIVE DIAGNOSIS: Recurrent left pleural effusion. PROCEDURE: Insertion of left chest tube 14-Nauruan. REFERRING: Chrissie Denise MD BRIEF HISTORY: Mr. George is an 81-year-old white male with the above-noted diagnosis. I performed a previous thoracentesis. This has recurred in a relatively short time. He is not a good candidate for pleurodesis given his heart function and renal function. Therefore, we are doing a chest tube placement. Informed consent has been obtained. The area is marked with ultrasound. 1% lidocaine was used to infiltrate skin wheal and deeper tissues. The pleural space was accessed without difficulty and a guidewire fed without resistance. Stab incision made at the base of the needle and the needle was withdrawn. Soft tissue dilator was placed over the guidewire and then withdrawn and then the 14-Nauruan catheter was placed over the guidewire and the guidewire dilator removed. Chest tubes placed to suction. Serosanguineous fluid was evacuated nicely. The patient tolerated the procedure well and was secured in position with 2-0 silk and a sterile dressing was applied. Chest x-ray is pending for placement. FIDENCIO FARIA DO MCB/modl /[id number] d: 07/02/161942 t: 07/03/16 1027, OPERATIVE SUMMARY
--- NOTE | ~2016-06-22 | OR ---
PATIENT'S NAME: BRITTON COFFEY [facility] AGE: 81 Y [address] [place] [facility] [place] [place], [place] [address] LOCATION: GPCU ADMIT DATE: 06/22/2016 OR/Procedure Report DISCHARGE DATE: FAMILY PHYSICIAN: PHYSICIAN, UNKNOWN ATTENDING PHYSICIAN: Chrissie Denise SURGEON: Chrissie Denise MD CONSUMER LENDING MANAGER: DATE OF PROCEDURE: 06/25/2016 PROCEDURE PERFORMED: Central line placement for aquapheresis. INDICATIONS: Britton does not seem to be responding to intravenous diuretic infusions along with dobutamine. He has what appears to be nonischemic cardiomyopathy, hypertrophic cardiomyopathy, and decreased ejection fraction. The plan is to use Aquadex. DESCRIPTION OF PROCEDURE: After obtaining informed consent, the patient was prepped and draped using standard sterile precautions. 1% Xylocaine was used to obtain local anesthesia over the left subclavian site. Modified Seldinger technique was used to place a guidewire into the IVC. Next, a small incision was made, and a dilator was first introduced, after which the triple-lumen catheter with 2 vascular ports and possibly one port for possible pacemaker was introduced. It was sewn in place and the catheter position checked with x- ray before starting his Aquadex. The patient tolerated the procedure well. There were no complications noted. MD SIENA SHAY/jerry /[id number] d: 06/29/16 1520 t: 07/19/16 1451, OPERATIVE SUMMARY
--- NOTE | ~2016-06-22 | CON ---
PATIENT'S NAME: TRESSA COFFEY [facility] AGE: 81 Y [address] ROOM: [address] [place], [place] [address] LOCATION: GPCU ADMIT DATE: 06/22/2016 Consultation DISCHARGE DATE: FAMILY PHYSICIAN: PHYSICIAN, UNKNOWN ATTENDING PHYSICIAN: Chrissie Denise REFERRING PHYSICIAN: Naeem Killian MD Consult from Dr. Denise for evaluation of the patient for relative hypoadrenocorticism. HISTORY OF PRESENT ILLNESS: This is an 81-year-old male who was admitted to the service of Dr. Denise yesterday for what appears to be decompensated heart failure. The patient is a poor historian. When asked, reason for his admission, he responds with I do not know. The patient is on two pressors currently for hypotension, dobutamine and also dopamine. When asked, the patient denies fever. He denies headache. Denies pain anywhere. Denies abdominal pain. Denies chest pain. He reported he had one episode of watery stool this morning. Denies cough. Denies urinary symptoms. The patient also reports some purpuric rashes that appeared around his right knee involving the upper part of the thigh and proximal part of the right leg. REVIEW OF SYSTEM: All the system were asked and were negative except as documented in the HPI. PAST MEDICAL HISTORY: Includes chronic systolic heart failure, gout, essential hypertension, COPD. PAST SURGICAL HISTORY: Includes appendectomy, also dyslipidemia. SOCIAL HISTORY: Lives by himself. He denies use of alcohol. Stopped smoking. Stopped drinking alcohol about 20 years ago and he stopped smoking about 10 years ago. FAMILY HISTORY: No history of heart disease, cancer, diabetes in the family. PHYSICAL EXAMINATION: VITAL SIGNS: Temperature 98.0, pulse 108, respiratory rate 18, blood pressure 114/59, oxygen saturation 94% on room air. GENERAL: Reveals an elderly male who is alert, awake, not oriented to person alone, not in any form of respiratory distress or painful distress. NEUROLOGIC: Cranial nerves 2-12 are intact bilaterally. Sensory is intact bilaterally in both upper and lower extremities. Power is at least 3 in both upper extremity and 2 in both lower extremity. HEENT: Normocephalic, atraumatic. Pupils equal and reactive to light bilaterally. Pharynx is normal. Mucosa is moist. Ears, no obvious ear discharge or drainage. PATIENT'S NAME: TRESSA COFFEY [facility] AGE: 81 Y [address] ROOM: [address] [place], [place] [address] [facility] ADMIT DATE: 06/22/2016 Consultation DISCHARGE DATE: FAMILY PHYSICIAN: PHYSICIAN, UNKNOWN ATTENDING PHYSICIAN: Chrissie Denise NECK: Supple. No area of tenderness. No lymphadenopathy. CARDIOVASCULAR: Normal S1, S2. Tachycardia. CHEST: Decreased breath sounds in bilateral bases. ABDOMEN: Soft, nondistended. No area of tenderness. No palpable organomegaly. Positive bowel sounds with increased bowel sounds. EXTREMITIES: There is no joint swelling, erythema, or tenderness, but he has resolving bilateral lower extremity edema, also involving upper extremity. SKIN: He has what appears to be purpuric rash involving the skin around the knee and above the knee involving the distal 3rd of the right thigh and the proximal 3rd of the right leg. LABORATORY DATA: Troponin 0.371, proBNP 25786. Sodium 138, potassium 4.4, chloride 98, CO2 32, calcium 8.0, creatinine 1.5, BUN 53, magnesium 2.3. ASSESSMENT AND PLAN: This is an 81-year-old male who is admitted to service of Cardiology for decompensated heart failure. 1. Shock probably from cardiogenic shock. However, primary team has concerned for relative hypoadrenocorticism. We will check cortisol level random and we will start the patient on some hydrocortisone 50 mg q.8 hours IV. We will also rule out sepsis. We will check procalcitonin level and we will also check a UA and urine culture as well, and if the patient has a temperature spike, we will probably do blood cultures. Please note present on admission. 2. Skin lesion, appears vasculitic. We will check p-ANCA, c-ANCA, and also DERRELL, ESR, and CRP for further evaluation. 3. Thrombocytopenia, primary team present on admission. Primary team have called tire mold engraver. 4. Anasarca, present on admission. Management per primary team. 5. Acute on chronic systolic heart failure. Management per primary team. I would like to thank you for allowing me to take part in the care of this patient. MD GARRETT APPLE/crystall /[id number] d: 06/23/16 1820 t: 07/04/16 1619, CONSULTATION REPORT
--- NOTE | ~2016-06-22 | ENPV ---
Vascular Lower Extremities DVT Study Procedure Demographics Patient Name TRESSA COFFEY Date of Study 06/23/2016 Patient Number [id number] Gender Male Date of 1935 Age 81 Visit Number [id number] Height 68 Accession Number [id number] Weight 283.01 Referring Howie Dickens Interpreting Carlita Baires MD Physician Physician Physician Ordering Howie An/Sqq 89(V)15 Sonar System Journeyman Physician Chrissie NAVA Musical Instrument Mechanic Ramiro Newell T Aly Torres Conclusions Summary TECHNIQUE: The veins of the lower extremities on the right and the left were evaluated from the groin to the ankle using haq scale, compression, augmentation. Venous hemodynamics were evaluated with color flow and spectral Doppler. Findings: 1. The right lower extremity shows normal femoral vein and superficial femoral vein down to the popliteal level. Normal compressibility and augmentation. Poorly visualized posterior tibial and peroneal's on this side. Subacute thrombosis not excluded of the peroneal vein.. 2. The left lower extremity shows normal venous compressibility and augmentation from the groin to the ankle. No DVT or SVT noted in this extremity. IMPRESSION: Somewhat equivocal evidence for subacute thrombosis of the left peroneal veins. Otherwise negative study. Procedure Type of Study: Veins:Lower Extremities DVT Study, Venous Duplex Lower Extremity Bilateral. Appropriate Use Criteria:7 Allergies - No known allergies. Patient Status:Routine. Study Location:Inpatient Portable. Technical Quality:Limited visualization. - Preliminary reported to:Dr. Denise. Velocities are measured in cm/s ; Diameters are measured in cm Right Lower Extremities DVT Study Measurements Right 2D and Doppler Measurements + + + + +------+------+ + !Location !Visualized!Compressibility!Thrombosis!Signal!Reflux!Reflux ! ! ! ! ! ! ! !(sec) ! + + + + +------+------+ + !GSV Thigh !Yes !Yes !None !Phasic! ! ! + + + + +------+------+ + !Common !Yes !Yes !None !Phasic! ! ! !Femoral ! ! ! ! ! ! ! + + + + +------+------+ + !Prox !Yes !Yes !None !Phasic! ! ! !Femoral ! ! ! ! ! ! ! + + + + +------+------+ + !Mid Femoral!Yes !Yes !None !Phasic! ! ! + + + + +------+------+ + !Dist !Yes !Yes !None !Phasic! ! ! !Femoral ! ! ! ! ! ! ! + + + + +------+------+ + !Popliteal !Yes !Yes !None !Phasic! ! ! + + + + +------+------+ + !Gastroc !Yes !Yes !None ! ! ! ! + + + + +------+------+ + !PTV !Yes !Yes !None ! ! ! ! + + + + +------+------+ + !Peroneal !No !No !Sub-acute ! ! ! ! + + + + +------+------+ + Left Lower Extremities DVT Study Measurements Left 2D and Doppler Measurements + + + + +------+------+ + !Location !Visualized!Compressibility!Thrombosis!Signal!Reflux!Reflux ! ! ! ! ! ! ! !(sec) ! + + + + +------+------+ + !GSV Thigh !Yes !Yes !None !Phasic! ! ! + + + + +------+------+ + !Common !Yes !Yes !None !Phasic! ! ! !Femoral ! ! ! ! ! ! ! + + + + +------+------+ + !Prox !Yes !Yes !None !Phasic! ! ! !Femoral ! ! ! ! ! ! ! + + + + +------+------+ + !Mid Femoral!Yes !Yes !None !Phasic! ! ! + + + + +------+------+ + !Dist !Yes !Yes !None !Phasic! ! ! !Femoral ! ! ! ! ! ! ! + + + + +------+------+ + !Popliteal !Yes !Yes !None !Phasic! ! ! + + + + +------+------+ + !Gastroc !Yes !Yes !None ! ! ! ! + + + + +------+------+ + !PTV !Yes !Yes !None ! ! ! ! + + + + +------+------+ + !Peroneal !Yes !Yes !None ! ! ! ! + + + + +------+------+ + Signature dtt: Mono Zazueta dtd: 06/23/16 1315 Physician Self Edit
--- NOTE | ~2016-06-22 | ECHO ---
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 Mean gradient of 7 mmHg post BAV, pre was about 21 mmHg. Mild AI, not worse compared with prior imaging. NO pericardial effusion. Procedure Type of Study TTE procedure:Doppler , Color Doppler, Echo Limited w/o Contrast. Procedure Date Date: 06/30/2016 Start: 09:59 AM Study Location: Commercial Retoucher Technical Quality: Fair due to poor acoustical window. Indications:Post PTCA and Aortic stenosis. Patient Status: STAT Allergies - Sulfa. Doppler Measurements AV Peak Velocity: 1.67 m/s AV Peak Gradient: 11.16 mmHg AV Mean Gradient: 6 mmHg Contractility Score LV regional wall motion:(0-Non visualized 1-Normal 2-Hypokinesis 3-Akinesis 4-Dyskinesis 5-Aneurysm) Signature dtt: TOMASA MEDINA dtd: 06/30/16 0959 Physician Self Edit
--- NOTE | 2016-06-22 16:29 | NUR ---
Patient is 81 yo male admitted from [facility]. is resident of long term in [place]. patient refuses to answer questions. initially, refused to let staff start IV. the one in his right antecubital space apparently clotted off en route to hospital. patient has generalized edema. has small blood blister type looking spots on legs and arms that break and he bleeds. patient did agree to try an IV. attempted X 2 without success. patient refuses to answer questions. keeps his eyes closed when trying to talk to him. education not done at this time.
[2016-06-22 16:33] LABS: HEMATOCRIT 36.5 % (33.0-50.0); HEMOGLOBIN 10.9 g/dL (11.0-16.0); MCH 25.9 pg (27.0-34.0); MCHC 29.9 gm/dL (32.0-36.5); MCV 86.7 fl (83.0-98.0); RBC 4.21 M/uL (3.50-5.50); RDW-CV 28.7 % (11.9-14.6); WBC 9.6 K/uL (4.0-11.0)
[2016-06-22 16:35] LABS: PLATELET COUNT 48 K/uL (150-450)
[2016-06-22 16:49] LABS: ANION GAP 10.6 (10.0-19.0); CALCIUM 7.9 mg/dL (8.5-10.5); CREATININE 1.8 mg/dL (0.6-1.3); POTASSIUM 4.6 mMol/L (3.7-5.1)
[2016-06-22] MEDS ORDERED: COREG6.25 MG PO (17:03)
[2016-06-22] MEDS ORDERED: PRINIVIL (ZESTRI5 MG PO (17:04)
[2016-06-22] MEDS ORDERED: DELTASONE10 MG PO (17:05)
[2016-06-22] MEDS ORDERED: ZYLOPRIM300 MG PO (17:05)
[2016-06-22] MEDS ORDERED: ALDACTONE25 MG PO (17:06)
[2016-06-22] MEDS ORDERED: LANOXIN (DIGI125 MCG PO (17:06)
[2016-06-22] MEDS ORDERED: LASIX40 MG PO ×2 (17:07→17:08)
[2016-06-22] MEDS ORDERED: MORPHINE S100 MG/5 M PO (17:08)
[2016-06-22] MEDS ORDERED: TYLENOL325 MG PO (17:09)
[2016-06-22] MEDS ORDERED: LEVSIN/SL0.125 MG SL (17:10)
[2016-06-22] MEDS ORDERED: DIPHENHYDRAMINE25 MG PO (17:11)
[2016-06-22] MEDS ORDERED: TYLENOL650 MG R (17:11)
[2016-06-22] MEDS ORDERED: MILK OF MA400 MG/5 M PO (17:12)
[2016-06-22] MEDS ORDERED: COMPAZINE 10MG10 MG PO (17:12)
[2016-06-22] MEDS ORDERED: DULCOLAX10 MG R (17:12)
[2016-06-22] MEDS ORDERED: LEVOTHROID(SYN75 MCG PO (17:13)
[2016-06-22] MEDS ORDERED: MINERIN CREME454 GM TOP (17:16)
[2016-06-22] MEDS ORDERED: CALMOSEPTINE OI71 GM TOP (17:18)
[2016-06-22 17:20] LABS: BANDED NEUTROPHIL # 1.4 K/uL (0.0-0.1); BANDED NEUTROPHILS % 15 %; LYMPHOCYTE # 0.4 K/uL (0.8-4.0); LYMPHOCYTE % 4 %; MONOCYTE # 0.2 K/uL (0.0-1.0); SEGMENTED NEUTROPHIL # 7.6 K/uL (1.4-9.0); SEGMENTED NEUTROPHIL % 79 %
--- NOTE | 2016-06-22 18:44 | NUR ---
Significant Event: A/OX3, FORGETFUL AT TIMES. VSS ON 4L PER NC. REPOSITIONS SELF SLOWLY IN BED. IV STARTED TO L)FA. PT. IS COOPERATIVE WITH CARES AT TIMES, WILL REFUSE TO DO THINGS WHEN NOT WANTING TO MOVE AROUND IN BED OR STARTING MEDS. Follow up: CONINTUE WITH POC.
--- NOTE | 2016-06-23 04:14 | NUR ---
Significant events: Pt alert, oriented at times-disoriented to place and time. Refuses most cares. Answers orientations questions intermittently. IV dobutamine @ set rate of 2mcg/kg/min. SBP 100's. On RA. Repositioned as patient allows. Unable to initiate IV lasix d/t low pressures. 3+ edema, weeping throughout body. Foely in place with 950 out. Slept most of shift. Refused all HS meds.
[2016-06-23 04:57] LABS: ANION GAP 12.4 (10.0-19.0); CREATININE 1.5 mg/dL (0.6-1.3); POTASSIUM 4.4 mMol/L (3.7-5.1)
--- NOTE | 2016-06-23 15:59 | NUR ---
Reviewed Britton's chart and also talked with his RN Odalis Arevalo. She tells me that he was at [facility] in [place], [place] and he will most likely return there. I let her know that I would plan on seeing him tomorrow as well as updating [facility] as well. CM to continue to follow and assist.
--- NOTE | 2016-06-23 17:25 | NUR ---
Significant Event: PT. ALERT, ORIENTATED AT TIMES. VSS ON ROOM AIR, SBP 90-120'S. DOBUTAMINE DRIP INCREASED TO 2.5mcg/min, DOPAMINE DRIP STARTED & INCREASED TO 2mcg/min. DR. Christina WILL CALL LATER AROUND 1999 ON BLOOD PRESSURES & POSSIBLE RATE CHANGES WITH DRIPS. IV TO L)FA. NO COMPLAINTS OF PAIN. WORKED WITH PT/OT TODAY. VS SCAN DONE. LABS DRAWN. VENOUS DUPLEX DONE. UA/C&S SENT. NS @ 5mL/HR. PT. HAS SLEPT ON/OFF THROUGHOUT SHIFT. ATE BITES OF MEALS. COOPERATIVE WITH CARES, MEDS TODAY. Follow up: CONTINUE WITH POC.
[2016-06-23 18:09] LABS: BILIRUBIN URINE NEGATIVE (NEGATIVE); BLOOD URINE 50 /UL (NEGATIVE); COLOR URINE YELLOW (YELLOW); GLUCOSE URINE NEGATIVE (NEGATIVE); KETONE URINE NEGATIVE (NEGATIVE); LEUKOCYTES URINE 500 /UL (NEGATIVE); NITRITE URINE NEGATIVE (NEGATIVE); PROTEIN URINE 30 mg/dL (NEGATIVE); TURBIDITY URINE 1+ (CLEAR); UROBILINOGEN URINE NORMAL (NORMAL)
[2016-06-23 18:18] LABS: WBC URINE 20-50 #/HPF (NEGATIVE)
[2016-06-23 18:19] LABS: BACTERIA URINE MODERATE (NEGATIVE); EPITHELIAL URINE 0-2 #/HPF (NEGATIVE)
[2016-06-23 18:20] LABS: MUCUS URINE 1+ (NEGATIVE)
[2016-06-24 03:41] LABS: HEMATOCRIT 34.4 % (33.0-50.0); HEMOGLOBIN 10.5 g/dL (11.0-16.0); MCH 26.2 pg (27.0-34.0); MCHC 30.5 gm/dL (32.0-36.5); MCV 85.8 fl (83.0-98.0); RBC 4.01 M/uL (3.50-5.50); RDW-CV 28.1 % (11.9-14.6); WBC 8.8 K/uL (4.0-11.0)
[2016-06-24 03:45] LABS: INR - (THERAPEUTIC) 1.19 (0.92-1.07); PROTIME 12.5 SECONDS (9.8-11.4)
[2016-06-24 03:55] LABS: ANION GAP 10.4 (10.0-19.0); CALCIUM 8.1 mg/dL (8.5-10.5); CREATININE 1.3 mg/dL (0.6-1.3); POTASSIUM 4.4 mMol/L (3.7-5.1)
[2016-06-24 04:00] LABS: PLATELET COUNT 48 K/uL (150-450)
[2016-06-24 04:06] LABS: MAGNESIUM 2.3 mg/dL (1.8-2.6)
--- NOTE | 2016-06-24 04:36 | NUR ---
Significant Event: disoriented to place/time, cooperative, pleasant, does call out for help at times, SBP 80-110s, HR 70-100s remains in afib, 1L/O2 placed to keep sats >90% while sleeping, dopamine continues at 2 mcg/min, dobutamine at 2.5 mcg/min, lasix gtt started at 2235 at 5 mg/hr, gtt stopped at 2305 for SBP 80/40s, BPs stable now, up to chair with 2 assist pivot transfer, Rocephin started, Digoxin and 40 meQ of potassium given, repositioned Q2hr, alvarado had 575 ml out Follow up: check am labs, continue plan of care, palliative c/s
[2016-06-24 04:39] LABS: ABSOLUTE NEUTROPHIL CT (ANC) 8.4 K/uL (1.4-9.0); BANDED NEUTROPHIL # 2.1 K/uL (0.0-0.1); BANDED NEUTROPHILS % 24 %; LYMPHOCYTE # 0.4 K/uL (0.8-4.0); LYMPHOCYTE % 4 %; MONOCYTE # 0.1 K/uL (0.0-1.0); SEGMENTED NEUTROPHIL # 6.3 K/uL (1.4-9.0); SEGMENTED NEUTROPHIL % 71 %
--- NOTE | 2016-06-24 12:27 | NUR ---
Introduced self and CM role to Britton. I reviewed his chart and talked with his primary RN Odalis Arevalo before going in the room. Confirmed that Britton was living at [facility] prior to coming into [facility]. He was on Hospice services but revoked them to come back into the hospital. I talked with Britton about this and he did tell me that it was correct. He is planning on going back to [facility] when he is ready to dismiss from here. It is unclear at this time if he will go back skilled or on Hospice again. Odalis tells me that he will most likely be here a few days and then return back to [facility] next week. No other questions, needs or concerns. CM to continue to follow and assist.
--- NOTE | 2016-06-24 13:01 | NUR ---
A - DIETARY CONSULT RECEIVED D/T ALB 2.2. 3+ WEEPING EDEMA - VOLUME OVERLOAD. LIQUID STOOLS. DECREASED APPETITE. ENC PO INTAKE. HT: 68" WT: 184# BMI: 27.9 LABS: GLU 187, BUN/CR 45/1.3, ALB 2.2, CRP 9.41 MEDS: LASIX, ROCEPHIN, SYNTHROID, PROTONIX, BOWEL DIET: CARDIAC. INTAKE: BITES NEEDS: [id number] KCAL (20-25 KCAL/KG), 84-101 G PRO (1-1.2 G/KG), 2100 ML FLUID (25 ML/KG) D - INADEQUATE NUTRIENT INTAKE R/T DECREASED APPETITE AEB INTAKE RECORD. I - GOAL FOR INTAKE > 50% BY NEXT ASSESSMENT. WILL ADD ENSURE TID TO INC NUTRIENT INTAKE. M/E - WILL MONITOR INTAKE F/U IN 4-5 DAYS.
--- NOTE | 2016-06-24 17:00 | NUR ---
Significant Event: VSS ON ROOM AIR, SBP 90-120'S TODAY. REMAINS ON DOBUTAMINE DRIP @ 2.5mcg/min. & DOPAMINE DRIP @ 2mcg/min. WAS ABLE TO START LASIX DRIP TODAY FOR ABOUT 3HRS, CAN RESTART DRIP @ 10mg/HR WHEN SBP >105. PT. TRANSFERS 2 ASSIST TO CHAIR WITH WALKER/GAIT BELT. REPOSITIONED Q2HR TODAY. NO COMPLAINTS OF PAIN. BATH DONE TODAY. MODERATE LIQUID/MUSHY BM X2, C-DIFF-. ENA LEY SAW PT. TODAY & WROTE A NOTE. PTS SISTER SOUMYA WILL BE HERE ON TUESDAY. PT. ATE 50% OF LUNCH TODAY. WORKED WITH PT/OT. Follow up: MONITOR BLOOD PRESSURES.
--- NOTE | 2016-06-25 04:57 | NUR ---
Significant Event: Oriented to self, patient yells out for help, cooperative with RN, SBP 80-107, HR- 79-80s in afib, alvarado had 550 ml out, Dobutamine and Dopamine continue at same rates, Albumin given x3, patient had small incontinent liquid stool, pitting edema bilateral arms and legs, Lasix gtt not started for blood pressures Follow up: continue plan of care
--- NOTE | 2016-06-25 11:19 | NUR ---
reviewed student charting and on the floor from [id number] gio [id number]
--- NOTE | 2016-06-25 20:49 | NUR ---
Significant Event: Alert and oriented. Can be a little forgetful. Room air. SBP 90's and 110's. HR 70's and 80's. Heart rates dropped into the high 30's X 3. notified. +3 edema to right arm and bilateral legs. Yells out at times and can be a little impatient. Power glide/midline left upper arm, Dobunamine infusing at 2.5 mcg/min. Peripheral IV to anterior forearm, flushes well. Central line placed to upper left chest. Dark red, scabbed rash to right barber, knee and thigh. Up with heavy 2 assist, pivot transfer to chair. Had a few statements stating that the men in black will be here to get him soon. Pleasant and cooperative with cares. Follow up: Sister Estefani will be here on Tuesday.
[2016-06-25 21:51] LABS: HEMOGLOBIN 9.7 g/dL (11.0-16.0); MCH 25.8 pg (27.0-34.0); MCHC 29.4 gm/dL (32.0-36.5); MCV 87.8 fl (83.0-98.0); RBC 3.76 M/uL (3.50-5.50); WBC 10.1 K/uL (4.0-11.0)
[2016-06-25 21:54] LABS: PLATELET COUNT 57 K/uL (150-450)
[2016-06-25 22:00] LABS: INR - (THERAPEUTIC) 1.22 (0.92-1.07); PROTIME 12.8 SECONDS (9.8-11.4); PTT 25 SECONDS (25-32)
[2016-06-25 22:04] LABS: ANION GAP 10.6 (10.0-19.0); CALCIUM 8.5 mg/dL (8.5-10.5); CREATININE 1.3 mg/dL (0.6-1.3); POTASSIUM 3.6 mMol/L (3.7-5.1)
[2016-06-25 22:37] LABS: BANDED NEUTROPHIL # 2.9 K/uL (0.0-0.1); BANDED NEUTROPHILS % 29 %; LYMPHOCYTE # 0.8 K/uL (0.8-4.0); LYMPHOCYTE % 8 %; MONOCYTE # 0.3 K/uL (0.0-1.0); SEGMENTED NEUTROPHIL # 6.1 K/uL (1.4-9.0); SEGMENTED NEUTROPHIL % 60 %
[2016-06-26 05:17] LABS: BASOPHIL % 0.2 %; HEMATOCRIT 34.8 % (33.0-50.0); HEMOGLOBIN 10.2 g/dL (11.0-16.0); IMMATURE GRANULOCYTE # 0.3 K/uL (0.0-0.3); IMMATURE GRANULOCYTE % 3.4 %; LYMPHOCYTE # 0.6 K/uL (0.8-4.0); LYMPHOCYTE % 5.5 %; MCHC 29.3 gm/dL (32.0-36.5); MCV 88.5 fl (83.0-98.0); MONOCYTE # 0.5 K/uL (0.0-1.0); MONOCYTE % 4.8 %; NEUTROPHIL # (ANC) 8.6 K/uL (1.4-9.0); NEUTROPHIL % 86.1 %; NRBC % 0.2 /100WBC (0-0.00); PLATELET COUNT 64 K/uL (150-450); RBC 3.93 M/uL (3.50-5.50); RDW-CV 28.6 % (11.9-14.6)
[2016-06-26 05:29] LABS: ANION GAP 11.9 (10.0-19.0); CALCIUM 8.6 mg/dL (8.5-10.5); CREATININE 1.4 mg/dL (0.6-1.3); PHOSPHORUS 2.6 mg/dL (2.5-4.9); POTASSIUM 3.9 mMol/L (3.7-5.1)
[2016-06-26 05:36] LABS: TOTAL BILIRUBIN 1.8 mg/dL (0.0-1.5); TOTAL PROTEIN 5.4 g/dL (6.0-8.4)
--- NOTE | 2016-06-26 07:33 | NUR ---
Significant Event: AQUADEX INITIATED THIS SHIFT. UF RATE IS AT 50 ALL NIGHT. PT TOLERATING THIS WELL. R) ARM CONTINUES TO WEEP IN LARGE AMOUNTS ALL NIGHT. KERLIX APPLIED BUT HE SOAKED THROUGH THIS QUICKLY. INCONTINENT OF STOOL ALL NIGHT. HE WOULD USUALLY KNOW HE WAS GOING OR ABOUT 10 SECONDS BEFORE HE WENT. ALERT BUT YELLED OUT LOUDLY IF HE NEEDED ANYTHING. PT TURNED SELF FROM SIDE TO SIDE ALL NIGHT. Follow up:
[2016-06-26 08:18] LABS: BASOPHIL % 0.4 %; HEMATOCRIT 35.2 % (33.0-50.0); IMMATURE GRANULOCYTE # 0.4 K/uL (0.0-0.3); IMMATURE GRANULOCYTE % 4.5 %; LYMPHOCYTE # 0.6 K/uL (0.8-4.0); LYMPHOCYTE % 7.4 %; MCH 26.2 pg (27.0-34.0); MCHC 28.4 gm/dL (32.0-36.5); MCV 92.1 fl (83.0-98.0); MONOCYTE # 0.4 K/uL (0.0-1.0); MONOCYTE % 4.9 %; NEUTROPHIL # (ANC) 6.8 K/uL (1.4-9.0); NEUTROPHIL % 82.8 %; NRBC % 0.5 /100WBC (0-0.00); PLATELET COUNT 62 K/uL (150-450); RBC 3.82 M/uL (3.50-5.50); RDW-CV 28.7 % (11.9-14.6); WBC 8.2 K/uL (4.0-11.0)
[2016-06-26 12:12] LABS: BASOPHIL % 0.1 %; HEMATOCRIT 34.4 % (33.0-50.0); HEMOGLOBIN 10.2 g/dL (11.0-16.0); IMMATURE GRANULOCYTE # 0.2 K/uL (0.0-0.3); IMMATURE GRANULOCYTE % 2.7 %; LYMPHOCYTE # 0.6 K/uL (0.8-4.0); LYMPHOCYTE % 6.4 %; MCH 26.2 pg (27.0-34.0); MCHC 29.7 gm/dL (32.0-36.5); MCV 88.2 fl (83.0-98.0); MONOCYTE # 0.5 K/uL (0.0-1.0); MONOCYTE % 5.4 %; NEUTROPHIL # (ANC) 7.7 K/uL (1.4-9.0); NEUTROPHIL % 85.4 %; NRBC % 0.2 /100WBC (0-0.00); PLATELET COUNT 61 K/uL (150-450); RDW-CV 28.6 % (11.9-14.6)
[2016-06-26 16:49] LABS: HEMATOCRIT 33.6 % (33.0-50.0); HEMOGLOBIN 10.3 g/dL (11.0-16.0); MCH 26.3 pg (27.0-34.0); MCHC 30.7 gm/dL (32.0-36.5); MCV 85.7 fl (83.0-98.0); RBC 3.92 M/uL (3.50-5.50); RDW-CV 28.6 % (11.9-14.6); WBC 8.8 K/uL (4.0-11.0)
[2016-06-26 16:50] LABS: PLATELET COUNT 47 K/uL (150-450)
[2016-06-26 17:29] LABS: ABSOLUTE NEUTROPHIL CT (ANC) 8.2 K/uL (1.4-9.0); BANDED NEUTROPHIL # 0.6 K/uL (0.0-0.1); BANDED NEUTROPHILS % 7 %; LYMPHOCYTE # 0.4 K/uL (0.8-4.0); LYMPHOCYTE % 4 %; MONOCYTE # 0.3 K/uL (0.0-1.0); SEGMENTED NEUTROPHIL # 7.6 K/uL (1.4-9.0); SEGMENTED NEUTROPHIL % 86 %
--- NOTE | 2016-06-26 17:57 | NUR ---
PATIENT CONTINUES ON AQUADEX AT A UF OF 80 DR. Christian ORDERED 75 FOR UF BUT UF GOES UP BY 10. PATIENT IS STILL POSITIVE 979.7ML. UF BAG HAS NOT HAD TO BE EMPTIED YET. PATIENT HAS STOOD AT BEDSIDE TODAY X3 AND HAS DANGLED AT BEDSIDE X3. PLAN TO GET HIM IN RECLINER TOMORROW. SKIN IS STILL UNCHANGED FROM PREVIOUS SHIFTS. HEPARIN CONTINUES AT 900 UNIT/HOUR. PLAN TO CONINUE AQUADEX.
[2016-06-27 05:35] LABS: HEMATOCRIT 32.6 % (33.0-50.0); HEMOGLOBIN 9.6 g/dL (11.0-16.0); MCHC 29.4 gm/dL (32.0-36.5); MCV 88.3 fl (83.0-98.0); RBC 3.69 M/uL (3.50-5.50); RDW-CV 28.6 % (11.9-14.6); WBC 9.3 K/uL (4.0-11.0)
[2016-06-27 05:37] LABS: PLATELET COUNT 70 K/uL (150-450)
[2016-06-27 05:54] LABS: ANION GAP 12.7 (10.0-19.0); CALCIUM 8.3 mg/dL (8.5-10.5); CREATININE 1.6 mg/dL (0.6-1.3); POTASSIUM 4.7 mMol/L (3.7-5.1)
[2016-06-27 06:08] LABS: ABSOLUTE NEUTROPHIL CT (ANC) 7.5 K/uL (1.4-9.0); BANDED NEUTROPHIL # 0.6 K/uL (0.0-0.1); BANDED NEUTROPHILS % 6 %; LYMPHOCYTE # 1.4 K/uL (0.8-4.0); LYMPHOCYTE % 15 %; MONOCYTE # 0.4 K/uL (0.0-1.0); SEGMENTED NEUTROPHIL % 75 %
--- NOTE | 2016-06-27 16:49 | NUR ---
PATIENT CONTINUES ON AQUADEX TODAY AT A UF RATE OF 80. PATIENT IS TOLERATING WELL. PATIENT STATES HE FEELS BETTER TODAY. HAS DANGLED AT BEDSIDE AND HAS BEEN UP TO COMMODE TODAY.
--- NOTE | 2016-06-27 19:44 | NUR ---
Significant Event: PT MORE CONFUSED THIS SHIFT. MAKING "OFF" STATMENTS. STATES HE IS NOT FEELING WELL AND WANTS THE AMBULANCE CALLED. HE HAD 2 ENSURES AND SHORTLY AFTER THESE, HE STARTED HAVING LOOSE STOOLS. STILL YELLS OUT WHEN HE NEEDS ANYTHING. HE JUST KEEPS ASKING FOR SOMETHING TO DRINK. DENIES PAIN. REMAINS ON ROOM AIR. Follow up:
[2016-06-28 02:14] LABS: HEMATOCRIT 32.2 % (33.0-50.0); HEMOGLOBIN 9.6 g/dL (11.0-16.0); MCH 26.2 pg (27.0-34.0); MCHC 29.8 gm/dL (32.0-36.5); MCV 87.7 fl (83.0-98.0); PLATELET COUNT 78 K/uL (150-450); RBC 3.67 M/uL (3.50-5.50); RDW-CV 28.5 % (11.9-14.6); WBC 10.4 K/uL (4.0-11.0)
[2016-06-28 02:33] LABS: ANION GAP 11.3 (10.0-19.0); CALCIUM 8.8 mg/dL (8.5-10.5); CREATININE 1.6 mg/dL (0.6-1.3); POTASSIUM 4.3 mMol/L (3.7-5.1)
[2016-06-28 02:58] LABS: ABSOLUTE NEUTROPHIL CT (ANC) 7.8 K/uL (1.4-9.0); LYMPHOCYTE # 0.9 K/uL (0.8-4.0); LYMPHOCYTE % 9 %; MONOCYTE # 1.4 K/uL (0.0-1.0); SEGMENTED NEUTROPHIL # 7.8 K/uL (1.4-9.0); SEGMENTED NEUTROPHIL % 75 %
--- NOTE | 2016-06-28 05:22 | NUR ---
Significant Event: DENIES PAIN ALL NIGHT. AQUADEX RUNNING WITHOUT ISSUES. AT CURRENT TIME, PT IS NEGATIVE 234 ML. PT NOT COMPLAINING MUCH TO FEELING THIRSTY. HERNANDEZ PATENT WITH 182ML OF UO. REMAINS ON ROOM AIR BUT AT TIMES WILL DIP INTO THE 80s BUT COMES BACK UP QUICKLY. RESTING WELL IN BED ALL NIGHT. Follow up:
--- NOTE | 2016-06-28 11:24 | NUR ---
PATIENT OFF FLOOR FOR 1100 ASSESSMENT. WILL ASSESS WHEN PT IS RETURNED TO FLOOR.
--- NOTE | 2016-06-28 14:24 | NUR ---
A - NUT F/U. AQUADEX STARTED. 1-2+ EDEMA. DECREASED APPETITE. LABS: ACCUCHECK WNL->300, GLU 185, BUN/CR 42/1.6, ALB 3.0, TOT BILI 1.8. MEDS: PREDNISONE, SSI, FERGON, ZOSYN, SYNTHROID, BOWEL. DIET: DIABETIC, 2-3 GM SODIUM, 1500 ML FLUID. INTAKE: 25-50% ENSURE TID. NEEDS: [id number] KCAL, 84-101 G PRO. D - INADEQUATE NUTRIENT INTAKE R/T DECREASED APPETITE AEB INTAKE RECORD. I - GOAL FOR INTAKE > 50% BY NEXT ASSESSMENT. WILL CHANGE ENSURE TO GLUCERNA D/T DM DIET. M/E - WILL MONITOR INTAKE F/U IN 3-5 DAYS.
--- NOTE | 2016-06-28 14:44 | NUR ---
Call from JORDY Muller that Britton's sister had some questions and wanted to visit with me. I did go in and talk with Britton's sister in his room, he was out of the room for a procedure so he wasn't present during our conversation. His sister wanted to know if she could transfer him to a different SNF when he was ready to dismiss from our facility. She would prefer one here in [place], with [facility] being her first choice. I let her know that I would be happy to look into other SNF options for Britton, but I also wanted her to know to not get rid of his room at [facility] I wouldn't be able to find a SNF here in [facility] [address] for him. I let her know that we would try our best to see if any SNFs here in [facility] could accept, but if they couldn't then he would most likely go back to [facility] as he was a resident there before and then she and Britton could work with staff there to obtain other placement options. She voiced understanding to this. I did go over the difference between a Medicare Skilled stay at a SNF and also a Medicare Hospice stay at a SNF with her. She shares with me that she lives in [place] and is still working so she won't be here all of the time but her number is on the chart with any questions. I let her know that once I made referrals to other SNFs I would update her to what they said. It is her hope, as well as Britton's she tells me that he will be able to go back to a SNF with therapy needs and not go back on Hospice services. Plan to keep her updated with SNF referral process. Faxed a formal referral to [facility] and also updated Merline to the possible referral. [facility] is not accepting referrals this week. I will make referral to . [facility] and [facility] as well if they have any openings. Will continue to follow and assist.
--- NOTE | 2016-06-28 18:38 | NUR ---
aquadex D/C. THORACENTSIS OF THE LEFT LUNG APPROX [address] OF PELVIS AND ABDOMEN.
--- NOTE | 2016-06-28 18:57 | NUR ---
correction left thoracentesis done.
--- NOTE | 2016-06-28 18:58 | NUR ---
PATIENT CONTINUES TO HAV SCROTAL EDEMA. PATIENT DOES NOT COMPLAIN OF PAIN OR DISCOMFORT WITH THIS EDEMA. IT IS DIFFICULT TO ELEVATE DUE TO PATIENTS WISH TO LAY ON SIDE WHEN LAYING DOWN.
--- NOTE | 2016-06-28 18:59 | NUR ---
I HAVE READ AND AGREE WITH CHARTING DONE BY Ranjana HARMON STUDENT NURSE.
[2016-06-28 20:18] LABS: INR - (THERAPEUTIC) 1.14 (0.92-1.07)
[2016-06-29 03:31] LABS: HEMATOCRIT 30.8 % (33.0-50.0); HEMOGLOBIN 9.2 g/dL (11.0-16.0); MCH 26.6 pg (27.0-34.0); MCHC 29.9 gm/dL (32.0-36.5); RBC 3.46 M/uL (3.50-5.50); RDW-CV 28.8 % (11.9-14.6); WBC 10.7 K/uL (4.0-11.0)
[2016-06-29 03:40] LABS: PLATELET COUNT 95 K/uL (150-450)
[2016-06-29 03:49] LABS: ANION GAP 13.8 (10.0-19.0); CALCIUM 8.6 mg/dL (8.5-10.5); CREATININE 1.8 mg/dL (0.6-1.3); POTASSIUM 4.8 mMol/L (3.7-5.1)
--- NOTE | 2016-06-29 05:11 | NUR ---
DISORIENTED TIME/PLACE. HR 60-90s. SBP 120-140s. AFEBRILE. 1L NC. PATIENT COUGHING UP SCANT AMOUNT OF BLOODY SPUTUM. CRACKLES IN ALL LUNG GRAY. TOTAL 40MG LASIX GIVEN. HERNANDEZ INTACT 525 UOP. PT/INR DRAWN.
[2016-06-29 05:19] LABS: ABSOLUTE NEUTROPHIL CT (ANC) 8.7 K/uL (1.4-9.0); BANDED NEUTROPHIL # 2.6 K/uL (0.0-0.1); BANDED NEUTROPHILS % 24 %; LYMPHOCYTE # 1.4 K/uL (0.8-4.0); LYMPHOCYTE % 13 %; MONOCYTE # 0.1 K/uL (0.0-1.0); SEGMENTED NEUTROPHIL # 6.1 K/uL (1.4-9.0); SEGMENTED NEUTROPHIL % 57 %
--- NOTE | 2016-06-29 14:20 | NUR ---
Call to Merline at [facility] to check on the status of the referral I had sent her yesterday on Britton. Per Merline, they could potentially accept early next week. 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 as that is where they are now putting their more termite treater residents. I let her know that I would gather updated information up and fax it over to Iliana at [facility] in the morning. CM to continue to follow and assist.
--- NOTE | 2016-06-29 16:28 | NUR ---
Significant Event: PT AND SISTER,JOHN, REFUSED BONE MARROW BX THIS AM. DID AGREE TO . STRESS TEST. NO RESULTS YET. PT HAS BEEN COOPERATIVE, CEAM TO LEGS. BARELY RUBBED CREAM ON LEGS WITH GLOVED HAND AND 5 OR 6 AREAS STARTED TO WEEP AND BLEED. VERY TENDER AND SORE TO TOUCH. Follow up:MONITOR
[2016-06-29 17:36] LABS: MCH 26.5 pg (27.0-34.0); MCV 88.2 fl (83.0-98.0); PLATELET COUNT 100 K/uL (150-450); RDW-CV 28.9 % (11.9-14.6); WBC 10.7 K/uL (4.0-11.0)
[2016-06-29 17:46] LABS: INR - (THERAPEUTIC) 1.23 (0.92-1.07); PROTIME 12.9 SECONDS (9.8-11.4)
[2016-06-29 17:56] LABS: ALBUMIN 2.7 gm/dL (3.5-5.0); ANION GAP 15.8 (10.0-19.0); CALCIUM 8.4 mg/dL (8.5-10.5); CREATININE 1.9 mg/dL (0.6-1.3); POTASSIUM 4.8 mMol/L (3.7-5.1); TOTAL BILIRUBIN 1.6 mg/dL (0.0-1.5); TOTAL PROTEIN 5.3 g/dL (6.0-8.4)
[2016-06-29 18:28] LABS: ABSOLUTE NEUTROPHIL CT (ANC) 9.7 K/uL (1.4-9.0); BANDED NEUTROPHIL # 2.4 K/uL (0.0-0.1); BANDED NEUTROPHILS % 22 %; LYMPHOCYTE # 0.6 K/uL (0.8-4.0); LYMPHOCYTE % 6 %; MONOCYTE # 0.5 K/uL (0.0-1.0); SEGMENTED NEUTROPHIL # 7.4 K/uL (1.4-9.0); SEGMENTED NEUTROPHIL % 69 %
[2016-06-30 04:13] LABS: ALBUMIN 2.6 gm/dL (3.5-5.0); ANION GAP 13.8 (10.0-19.0); CALCIUM 8.3 mg/dL (8.5-10.5); CREATININE 1.9 mg/dL (0.6-1.3); POTASSIUM 4.8 mMol/L (3.7-5.1); TOTAL BILIRUBIN 1.3 mg/dL (0.0-1.5); TOTAL PROTEIN 5.1 g/dL (6.0-8.4)
[2016-06-30 04:42] LABS: BASOPHIL % 0.2 %; HEMATOCRIT 28.9 % (33.0-50.0); HEMOGLOBIN 8.6 g/dL (11.0-16.0); IMMATURE GRANULOCYTE # 0.8 K/uL (0.0-0.3); IMMATURE GRANULOCYTE % 7.9 %; LYMPHOCYTE # 0.8 K/uL (0.8-4.0); LYMPHOCYTE % 8.1 %; MCH 26.5 pg (27.0-34.0); MCHC 29.8 gm/dL (32.0-36.5); MCV 88.9 fl (83.0-98.0); MONOCYTE # 0.6 K/uL (0.0-1.0); NEUTROPHIL # (ANC) 7.9 K/uL (1.4-9.0); NEUTROPHIL % 77.8 %; NRBC % 4.5 /100WBC (0-0.00); PLATELET COUNT 96 K/uL (150-450); RBC 3.25 M/uL (3.50-5.50); RDW-CV 29.2 % (11.9-14.6); WBC 10.1 K/uL (4.0-11.0)
[2016-06-30 04:46] LABS: INR - (THERAPEUTIC) 1.21 (0.92-1.07); PROTIME 12.7 SECONDS (9.8-11.4)
--- NOTE | 2016-06-30 04:52 | NUR ---
DISORIENTED TIME/PLACE. VSS. DENIES PAIN. HERNANDEZ IN PLACE, NPO AT [facility] FOR AORTIC VALVULOPLASTY. PERMITS NEED SIGNED. CLIPPER PREP DONE. CHECKLIST STARTED.
--- NOTE | 2016-06-30 10:11 | NUR ---
0900 ALCOHOLIC COUNSELOR HERE TO GET PT FOR VALVULOPLASTY. AT THIS TIME, PT IS ALERT AND FAIRLY ORIENTED, PINK WARM AND DRY. LUNGS ARE CLEAR UPPER AND CLEAR DIMINISHED LOWER, ABDOMEN IS SOFT AND NONTENDER WITH PRESENT BOWEL SOUNDS. PULSES ARE 2-2-1, HE DOES HAVE 2+ EDEMA TO HIS LOWER EXTREMITIES AND 1-2+ GENERAL EDEMA ELSEWHERE. SKIN IS VERY FRAGILE, HE DOES HAVE NUMEROUS SMALL SKIN TEARS ON HIS ARMS, AND A "BACTERIAL" RASH ON HIS LEGS, ESPECIALLY WORSE ON THE RIGHT THIGH AND ROWE. THEY ARE ALL UP AND DOWN HIS LEG LIKE A RASH, BUT LOOK LIKE DRIED BLOOD BLISTERS THAT ARE VERY FRAGILE TO TOUCH AND BLEED WHEN EVER THE CREAM IS RUBBED ON. IT IS ALSO VERY PAINFUL FOR HIM TO HAVE THE CREAM RUBBED ON. STANDS WITH ASSIST OF TWO, AND MOVES FAIRLY WELL AFTER HE'S UP AND ON HIS FEET. PT HAS BEEN PLEASENT AND COOPERATIVE WITH CARES. SISTER AT BEDSIDE AND IS HIS POA. SHE IS ALSO VERY COPPERATIVE AND REALISTIC WITH HIS CARES.
--- NOTE | 2016-06-30 12:31 | NUR ---
Faxed an update to both [facility] and also faxed a referral to [facility] per the request of Merline at [facility] as she thinks he might be a more prison placement and they are wanting to place more terminal clerk residents at [facility] rather than [facility]. CM to continue to follow and assist.
[2016-06-30 17:14] LABS: HEMATOCRIT 33.3 % (33.0-50.0); HEMOGLOBIN 10.5 g/dL (11.0-16.0); MCH 27.7 pg (27.0-34.0); MCHC 31.5 gm/dL (32.0-36.5); MCV 87.9 fl (83.0-98.0); PLATELET COUNT 80 K/uL (150-450); RBC 3.79 M/uL (3.50-5.50); WBC 10.2 K/uL (4.0-11.0)
[2016-06-30 17:16] LABS: RDW-CV 25.6 % (11.9-14.6)
[2016-06-30 17:35] LABS: ANION GAP 13.4 (10.0-19.0); CALCIUM 8.2 mg/dL (8.5-10.5); CREATININE 1.8 mg/dL (0.6-1.3); POTASSIUM 4.4 mMol/L (3.7-5.1)
[2016-06-30 18:05] LABS: ABSOLUTE NEUTROPHIL CT (ANC) 8.8 K/uL (1.4-9.0); BANDED NEUTROPHILS % 10 %; LYMPHOCYTE # 0.7 K/uL (0.8-4.0); LYMPHOCYTE % 7 %; MONOCYTE # 0.4 K/uL (0.0-1.0); SEGMENTED NEUTROPHIL # 7.8 K/uL (1.4-9.0); SEGMENTED NEUTROPHIL % 76 %
--- NOTE | 2016-06-30 19:07 | NUR ---
Significant Event: Patient is A/Ox2, not to place or year. Follows all commands, pleasant and cooperative with cares. Temp pacer in right groin, Vpaced at 60. Afib. HR 60-70's.VSS. Afebrile. Lungs asculated clear/diminished. Titrated from 4L NC to RA. SPO2>95%. 2 units PRBC's given, follow up hgb 10.5. ADA with 2mg NA, 1500FR/day. Hypoactive bowel sounds, no BM. Denied pain. Bedrest til temp pacer pulled. Follow up:Will reaccess tommorrow for possible permanent pacemaker.
--- NOTE | 2016-07-01 03:47 | NUR ---
Significant Event: Alert to person and place. Moves all extremities spontaneously denies N&T. Bedrest HOB 15-30 degrees. Has external pacer that is V-paced MA 10 sensitivity 5. Pacer site in R) groin. Pulses 2,2,1. On RA sats low 90s when sleeps. Leary moderate output. On 1500ml fluid restriction. ADA diet with NA restriction. Has bacterial rash on arms and legs that weep ointment scheduled topically. Site to R) groin has shadow drainage area is soft. Has Regan drsg to L) calf C/D/I. Power glide to L) arm SL. Double lumen subclavian SL. Follow up: Hematest all stools. Accuchecks AC/HS
[2016-07-01 06:09] LABS: ALBUMIN 2.7 gm/dL (3.5-5.0); ANION GAP 13.7 (10.0-19.0); CALCIUM 8.4 mg/dL (8.5-10.5); CREATININE 1.9 mg/dL (0.6-1.3); MAGNESIUM 2.3 mg/dL (1.8-2.6); POTASSIUM 4.7 mMol/L (3.7-5.1); TOTAL PROTEIN 5.2 g/dL (6.0-8.4)
[2016-07-01 06:14] LABS: TOTAL BILIRUBIN 2.1 mg/dL (0.0-1.5)
[2016-07-01 06:27] LABS: BASOPHIL % 0.2 %; HEMATOCRIT 35.2 % (33.0-50.0); IMMATURE GRANULOCYTE # 0.8 K/uL (0.0-0.3); IMMATURE GRANULOCYTE % 6.6 %; LYMPHOCYTE # 0.6 K/uL (0.8-4.0); LYMPHOCYTE % 5.1 %; MCH 27.3 pg (27.0-34.0); MCHC 31.3 gm/dL (32.0-36.5); MCV 87.3 fl (83.0-98.0); MONOCYTE # 0.6 K/uL (0.0-1.0); MONOCYTE % 4.8 %; NEUTROPHIL # (ANC) 10.3 K/uL (1.4-9.0); NEUTROPHIL % 83.3 %; NRBC % 5.2 /100WBC (0-0.00); PLATELET COUNT 88 K/uL (150-450); RBC 4.03 M/uL (3.50-5.50); RDW-CV 26.2 % (11.9-14.6); WBC 12.4 K/uL (4.0-11.0)
[2016-07-01 06:55] LABS: ABSOLUTE NEUTROPHIL CT (ANC) 11.2 K/uL (1.4-9.0); BANDED NEUTROPHIL # 1.4 K/uL (0.0-0.1); BANDED NEUTROPHILS % 11 %; LYMPHOCYTE # 0.5 K/uL (0.8-4.0); LYMPHOCYTE % 4 %; MONOCYTE # 0.6 K/uL (0.0-1.0); SEGMENTED NEUTROPHIL # 9.8 K/uL (1.4-9.0); SEGMENTED NEUTROPHIL % 79 %
--- NOTE | 2016-07-01 11:15 | NUR ---
A - NUT F/U. DECREASED APPETITE. 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 LABS: ACCUCHECK WNL->200, GLU 165, BUN/CR 48/1.9, ALB 2.7, WBC 12.4. MEDS: PREDNISONE, SSI, FERGON, ZOSYN, SYNTHROID, PROTONIX, BOWEL. DIET: DIABETIC, 2-3 GM SODIUM, 1500 ML FLUID. INTAKE: 25-75% GLUCERNA TID. DRINKING SUPPLEMENTS. D - INADEQUATE NUTRIENT INTAKE R/T DECREASED APPETITE AEB INTAKE RECORD. I - GOAL FOR INTAKE 50-75% BY NEXT ASSESSMENT. WILL CONTINUE GLUCERNA TID. M/E - WILL MONITOR INTAKE F/U IN 5-6 DAYS.
--- NOTE | 2016-07-01 17:58 | NUR ---
Significant Event:DC'D TEMPORARY PACER AT 1300, UP TO CHAIR AT 1500, HEPARIN GTT [facility] 1750 [facility]. FIRST PTTHP. AT 2359 TONIGHT. PATIENT IS PLEASANT AND COOPERATIVE MOST OF THE TIME. EXTREME RASH ON LEGS AND ABDOMEN. RIGHT LEG IS MOST PAINFUL/ HERNANDEZ WITH MARGINAL UOP. NEPHROLOGY CONSULT TODAY Follow up:TRANSFER TO PCU
--- NOTE | 2016-07-02 04:51 | NUR ---
Transfer from ICU at 183. Alert and oriented to self and place. 90's on RA. Was on [facility] at [place]. Became SOB and had 4+ edema so presented to ED. Patient received aquapheresis. Had valvoloplasty on with temp pacer placed. Pacer removed 07/01. Dressing to site CDI. Full lift. Edama BLLE. Rash/scabs abdomen and BLLE. Skin tear right hand- dressed. Dressing to left calf. Peripheral Left hand SL. Midline SL. Double lumen subclavian line infusing heparin and zosyn. Heparin infusing at 900 units/hr. Next PTT is 0615. 1500 ml fluid restriction.
[2016-07-02 08:02] LABS: HEMATOCRIT 34.4 % (33.0-50.0); HEMOGLOBIN 11.1 g/dL (11.0-16.0); MCH 28.1 pg (27.0-34.0); MCHC 32.3 gm/dL (32.0-36.5); MCV 87.1 fl (83.0-98.0); PLATELET COUNT 72 K/uL (150-450); RBC 3.95 M/uL (3.50-5.50); RDW-CV 26.2 % (11.9-14.6); WBC 11.5 K/uL (4.0-11.0)
[2016-07-02 08:19] LABS: ALBUMIN 2.5 gm/dL (3.5-5.0); ANION GAP 15.7 (10.0-19.0); CALCIUM 8.3 mg/dL (8.5-10.5); CREATININE 1.6 mg/dL (0.6-1.3); MAGNESIUM 2.4 mg/dL (1.8-2.6); POTASSIUM 4.7 mMol/L (3.7-5.1); TOTAL BILIRUBIN 1.7 mg/dL (0.0-1.5)
[2016-07-02 08:33] LABS: ABSOLUTE NEUTROPHIL CT (ANC) 10.5 K/uL (1.4-9.0); BANDED NEUTROPHIL # 1.4 K/uL (0.0-0.1); BANDED NEUTROPHILS % 12 %; LYMPHOCYTE # 0.6 K/uL (0.8-4.0); LYMPHOCYTE % 5 %; MONOCYTE # 0.3 K/uL (0.0-1.0); SEGMENTED NEUTROPHIL # 9.1 K/uL (1.4-9.0); SEGMENTED NEUTROPHIL % 79 %
--- NOTE | 2016-07-02 15:54 | NUR ---
Faxed an update to [facility]. Also faxed an update to both [facility] and [facility] to see if they can take. No word back from either one of them if they could accept yet or not. Have left VM for both Merline ([facility]) and also Iliana ([facility]). CM to continue to follow and assist.
--- NOTE | 2016-07-02 18:58 | NUR ---
Significant Event:CENTRAL LINE DC'D THIS AFTERNOON. ZOSYN DC'D. CHEST TUBE PLACED IN LEFT CHEST AT [address] FARIA. 1030 ML SANG. DRAINAGE THIS AFTERNOON. UP TO RECLINER WITH THERAPY THIS MORNING. BACK TO BED WITH LIFT. Follow up:
--- NOTE | 2016-07-03 02:04 | NUR ---
PT REFUSED HIS IS/FV AT TIME OF SCHEDULED DEMONSTRATION. WAS TOLD BY PATIENT THAT HE WAS READY FOR BED.
--- NOTE | 2016-07-03 05:14 | NUR ---
Alert. Oriented to self and place. Chest tube placed yesterday to left side. Leary patent. Skin scaby, flaky, weepy. Dressing to LLE. Dressing to L hand. Heparin gtt at 800. Next PTT 0945. 1500ml fluid restriction. Palliative consult. Small liquid BM this shift.
[2016-07-03 11:09] LABS: HEMOGLOBIN 11.1 g/dL (11.0-16.0); MCHC 30.8 gm/dL (32.0-36.5); MCV 90.9 fl (83.0-98.0); RBC 3.96 M/uL (3.50-5.50); RDW-CV 26.7 % (11.9-14.6); WBC 13.8 K/uL (4.0-11.0)
[2016-07-03 11:10] LABS: PLATELET COUNT 99 K/uL (150-450)
[2016-07-03 11:41] LABS: ABSOLUTE NEUTROPHIL CT (ANC) 11.3 K/uL (1.4-9.0); BANDED NEUTROPHIL # 2.3 K/uL (0.0-0.1); BANDED NEUTROPHILS % 17 %; LYMPHOCYTE # 1.7 K/uL (0.8-4.0); LYMPHOCYTE % 12 %; MONOCYTE # 0.7 K/uL (0.0-1.0); SEGMENTED NEUTROPHIL % 65 %
--- NOTE | 2016-07-03 16:56 | NUR ---
SIGNIFICANT EVENT: A&O to self and place-becomes tearful/agitated at times with movement. Hx CHF. Denies syncope. 2-3+ generalized edema. Pacemaker. Rt groin valvuloplasty site open to air. Aquadex therapy stopped 06/28. Pt on RA-upper lobes are slightly coars and the bases are diminished. Pt has left lateral chest tube to water-seal/suction draining sanguinous drainage (120ml out). 1 liquid BM per last night report. Hemetest all stools. Monitor for decreased appetite. Firm/round abdomen upon palpation. Bowels active. Bullous impetigo-sores on legs/abdomen/mouth/arms. Left upper arm midline saline locked. Heparin 700u infusing in left wrist PIV. Pt has knowledge of call light and confirms understanding. Mica given x1 for anticiapted pain. Pt denies pain/refuses medication for pain. FOLLOW UP: Continue with plan of care per MD orders.
[2016-07-04 05:14] LABS: HEMATOCRIT 32.4 % (33.0-50.0); HEMOGLOBIN 10.2 g/dL (11.0-16.0); MCH 28.5 pg (27.0-34.0); MCHC 31.5 gm/dL (32.0-36.5); MCV 90.5 fl (83.0-98.0); PLATELET COUNT 90 K/uL (150-450); RBC 3.58 M/uL (3.50-5.50); RDW-CV 26.8 % (11.9-14.6); WBC 13.2 K/uL (4.0-11.0)
[2016-07-04 05:26] LABS: ANION GAP 14.9 (10.0-19.0); CALCIUM 8.6 mg/dL (8.5-10.5); CREATININE 1.7 mg/dL (0.6-1.3); MAGNESIUM 2.6 mg/dL (1.8-2.6); POTASSIUM 4.9 mMol/L (3.7-5.1)
--- NOTE | 2016-07-04 05:27 | NUR ---
Significant Event: PATIENT DISORIENTED TO TIME, AT TIMES COOPERATIVE WITH CARES AT OTHER TIMES UNCOOPERATIVE AND AGITATED. HR IN THE 90'S, SBP 100'S TO 120'S. 02 MID 90'S ON RA. AFEBRILE. HEPARIN AT 700 UNITS/HR, NEXT PTT-HP 1700. HERNANDEZ 350 UOP. 110 OUTPUT VIA CHEST TUBE. ROXANOL GIVEN X 2 LAST AT 0320. Follow up:
[2016-07-04 06:09] LABS: ABSOLUTE NEUTROPHIL CT (ANC) 11.5 K/uL (1.4-9.0); BANDED NEUTROPHIL # 0.3 K/uL (0.0-0.1); BANDED NEUTROPHILS % 2 %; LYMPHOCYTE # 0.9 K/uL (0.8-4.0); LYMPHOCYTE % 7 %; MONOCYTE # 0.7 K/uL (0.0-1.0); SEGMENTED NEUTROPHIL # 11.2 K/uL (1.4-9.0); SEGMENTED NEUTROPHIL % 85 %
--- NOTE | 2016-07-04 17:31 | NUR ---
DISORIENTED. YELLS OUT. MEHNAZ X2. REPO Q2. ARMS WEEPING/BLEEDING. LS COARSE. AGITATED. HEP AT 700. HERNANDEZ 175. CX TUBE 900. KUB TODAY CONSTIPATION LG BM X1. SBP 100'S-120'S. HR 90'S-120'S. AFEBRILE. RA. INITIATED ISO FOR IMPETEGO. BATH DONE TODAY AND YEST. HEMOTEST STOOLS (FORGOT THIS BM).
--- NOTE | 2016-07-05 02:11 | NUR ---
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
--- NOTE | 2016-07-05 05:59 | NUR ---
Significant Event: PATIENT COOPERATIVE AT TIMES, AGITATED AT OTHER TIMES. HAS BEEN YELLING OUT AND REFUSES TO USE CALL LIGHT. SBP'S 99-108, AFIB HR 80'S TO LOW 100'S. 02 MID 90'S ON RA. AFEBRILE. EXREMETIES REMAIN VERY EDEMATOUS AND CONTNIUALLY WEEP. LAB HAS BEEN UNABLE TO PERFORM BLOOD DRAWS. CHEST TUBE 90 ML OUTPUT. HERNANDEZ 200 UOP. ROXANOL GIVEN X 1 AT 2130. Follow up:
[2016-07-05 06:09] LABS: ANION GAP 17.2 (10.0-19.0); CALCIUM 8.5 mg/dL (8.5-10.5); CREATININE 2.2 mg/dL (0.6-1.3); POTASSIUM 5.2 mMol/L (3.7-5.1)
[2016-07-05 06:10] LABS: HEMATOCRIT 30.7 % (33.0-50.0); HEMOGLOBIN 9.4 g/dL (11.0-16.0); MCH 28.1 pg (27.0-34.0); MCHC 30.6 gm/dL (32.0-36.5); MCV 91.6 fl (83.0-98.0); PLATELET COUNT 95 K/uL (150-450); RBC 3.35 M/uL (3.50-5.50); RDW-CV 27.4 % (11.9-14.6); WBC 13.3 K/uL (4.0-11.0)
[2016-07-05 07:01] LABS: ABSOLUTE NEUTROPHIL CT (ANC) 12.1 K/uL (1.4-9.0); BANDED NEUTROPHIL # 1.5 K/uL (0.0-0.1); BANDED NEUTROPHILS % 11 %; LYMPHOCYTE # 0.9 K/uL (0.8-4.0); LYMPHOCYTE % 7 %; MONOCYTE # 0.3 K/uL (0.0-1.0); SEGMENTED NEUTROPHIL # 10.6 K/uL (1.4-9.0); SEGMENTED NEUTROPHIL % 80 %
--- NOTE | 2016-07-05 14:03 | NUR ---
VM from Chago at [facility] stating that he is going to come up and evaluate Britton today for possible admission. No word yet on if they can accept or not. Also called to [facility] and gave them verbal update, as well as faxed update on Britton as well. I did ask if they had ever worked with a patient with plurex drains, per the DON, they had not, but that didn't mean that they wouldn't consider it. I let her know that I would get back with them if Britton should need to come there with one. I left a VM with Marquita Nelson with the above update. She later called me back and left me a VM stating that he wouldn't have to go to the SNF with a Plurex drain in so not to worry about that. CM to continue to follow and assist.
[2016-07-05 16:05] LABS: BLOOD URINE 25 /UL (NEGATIVE); COLOR URINE YELLOW (YELLOW); GLUCOSE URINE NEGATIVE (NEGATIVE); KETONE URINE NEGATIVE (NEGATIVE); LEUKOCYTES URINE 500 /UL (NEGATIVE); NITRITE URINE NEGATIVE (NEGATIVE); PROTEIN URINE 30 mg/dL (NEGATIVE); SPEC GRAVITY URINE 1.025 (1.003-1.035); TURBIDITY URINE 3+ (CLEAR); UROBILINOGEN URINE NORMAL (NORMAL)
[2016-07-05 16:21] LABS: BICARBONATE 22.4 mmol/L (18.0-23.0); PCO2 33 mmHg (35-45); PO2 77 mmHg (80-90)
[2016-07-05 16:22] LABS: WBC URINE 20-50 #/HPF (NEGATIVE)
[2016-07-05 16:23] LABS: AMORPHOUS URINE 2+ (NEGATIVE); BACTERIA URINE FEW (NEGATIVE)
--- NOTE | 2016-07-05 18:29 | NUR ---
Significant Event: pt has ct to suction still. Pt still confused, but does know some questions. Pt hollers out at times but then fades off to sleep, slept most of day, pt does have apnea. UA sent this afternoon, rocephin ordered. K 5.2 kayexalate ordered this shi. Heparin at 600u/hr, next ptthp at [address] Bundy notified today and has already seen pt. Leary still has low uop told. 02 applied 2liters for ABG 02 77%. Pt needs asst to eat but has no appetite. Pt can hold his own glass and does like ice cream. Follow up:
--- NOTE | 2016-07-06 05:01 | NUR ---
Oriented to self only. Yells out constantly. All extremies edematous and weeping. Black scabs to BLE and abdomen. Patient in ISO for impetigo. Kayexalate given last night. Pt had large inc. BM at 0330. Leary patent- low output. Chest tube to left side. 100ml out this shift. Heparin gtt at 600. Next PTT at 0630. Accuchecks ACHS. At HS BS 138. 2ltrs O2. Held metoprolol d/t SBPs 114 and 102.
[2016-07-06 06:28] LABS: HEMATOCRIT 27.2 % (33.0-50.0); HEMOGLOBIN 8.5 g/dL (11.0-16.0); MCH 29.3 pg (27.0-34.0); MCHC 31.3 gm/dL (32.0-36.5); MCV 93.8 fl (83.0-98.0); RDW-CV 27.7 % (11.9-14.6)
[2016-07-06 06:35] LABS: PLATELET COUNT 75 K/uL (150-450)
[2016-07-06 06:50] LABS: ALBUMIN 2.3 gm/dL (3.5-5.0); CALCIUM 8.1 mg/dL (8.5-10.5); CREATININE 2.7 mg/dL (0.6-1.3); PHOSPHORUS 6.8 mg/dL (2.5-4.9)
[2016-07-06 07:08] LABS: TOTAL BILIRUBIN 3.3 mg/dL (0.0-1.5); TOTAL PROTEIN 4.7 g/dL (6.0-8.4)
[2016-07-06 07:38] LABS: ABSOLUTE NEUTROPHIL CT (ANC) 8.2 K/uL (1.4-9.0); BANDED NEUTROPHIL # 0.7 K/uL (0.0-0.1); BANDED NEUTROPHILS % 8 %; LYMPHOCYTE # 0.5 K/uL (0.8-4.0); LYMPHOCYTE % 5 %; MONOCYTE # 0.3 K/uL (0.0-1.0); SEGMENTED NEUTROPHIL # 7.5 K/uL (1.4-9.0); SEGMENTED NEUTROPHIL % 83 %
--- NOTE | 2016-07-06 14:01 | NUR ---
A - NUTRITION F/U. PT CONFUSED. GLU 132, BUN/FUR NAILER 88/2.7, ALB 2.3, PO4 6.8. EXTREMITIES EDEMATOUS AND WEEPING. DIET: DIABETIC, LOW NA+, 1500 ML FR. INTAKE REFUSED TO BITES. OFFERED GLUCERNA TID W/ MEALS...NOT TAKING. D - WILL MOVE PT TO NO RISK PT WAS HOSPICE PRIOR TO ADMIT AND WILL NOT REC ANY ALTERNATE FEEDINGS. I - GOAL: INTAKE TOLERATED. M/E - WILL DISCONTINUE SUPPLEMENT. PLEASE CONSULT IF NEEDED.
--- NOTE | 2016-07-06 15:28 | NUR ---
Social visit with Jolie pallative care RN, she tells me that she has been talking with Britton's sisters, one that is POA - Estefani and the other one who is not. After talking with Britton, his sisters and other doctors, it has been decided that they are going to move Britton to comfort cares. Jolie would like for me to make sure that [facility] will take him back. I phoned over to [facility] and talked with the SW. She tells me that they will accept him back when he is able to come back to them. I let her know that we were looking at him being able to come back on as he still has his CT in at this point. MAXIME was fine with this. Plan to fax/call in another update to [facility] tomorrow and set up an ambulance later tomorrow afternoon as well. No other questions, needs or concerns. CM to continue to follow and assist. Plan for return back to [facility] ([facility]
--- NOTE | 2016-07-06 17:09 | NUR ---
Significant Event: Alert, able to state name when yelling out but doesn't follow commands or prompts; patient is restless, aggitated et yelling out sporadictally throughout shift. VSS, SBPs 90-110s, HRs 100-110s, on room air as won't leave oxygen on. Leary patent with 160 ml of dk yellow urine out. Lg loose BM x1 this shift. Patient was made comfort cares today. Chest tube placed to water seal with 145 ml of bloody drainage out. Reposition every 2 hours Follow up: d/c back to [facility] upon d/c of chest tube
--- NOTE | 2016-07-07 07:08 | NUR ---
Significant Event: YELLING OUT MOST OF NIGHT. SOME OF THE THINGS HE SAYS DOESN'T MAKE SENSE. HE IS IRRATIONAL AT TIMES. HE KEEPS ASKING FOR WATER AND SOMETIMES WHEN IT IS PUT IN FRONT OF HIM, HE BATS IT AWAY. HE HAS HAD TO BE TOLD THAT THE GLASS IS IN HIS HANDS AND HE KEEPS GETTING MAD THAT HE CAN'T HAVE WATER. HE HAS TRIED TO PULL ON HIS CATHETER AN COUPLE TIMES. HIS CHEST TUBE CAME UNHOOKED UNDER HIS DRESSING X1. IT WAS REATTACHED WITHOUT ISSUE. IT KEPT DRAINING WITHOUT PROBLEM. MORPHINE WAS GIVEN X1 AT AROUND 0600 FOR LEG PAIN. HIS MONITOR WAS REMOVED CAUSE HE KEPT PULLING OFF THE LEADS. HIS SAT PROBE WAS LEFT ON TO MONITOR HR AND SATS. PT HAD 3 INCONT LOOSE STOOLS. Follow up:
--- NOTE | 2016-07-07 13:44 | NUR ---
Social visit with JORDY Torres, she tells me that if [facility] can accept Britton back today, she didn't see why he couldn't return there. His chest tube had been taking out and clearance had been given to have him go back to SNF by Marquita Nelson and Dr. Markham. I called and talked with Shell at [facility], she states that as long as they have orders before 1400 and Hospice can admit today they will accept. I called and updated JORDY Torres to this, she was going to get ahold of Dr. Christian, Dr. Merida and Jolie will Pallative Care so they could come around and complete orders. Those were completed and Hospice paperwork was filled out and faxed over to [facility] and [facility] by myself prior to him leaving. I also talked with family in the hallway, this included his sister Shawna, and her . Explained to them that I had talked with [facility] and they would accept back today on Hospice and I had looked into other SNFs here in town, but none had accepted at this point. They voiced understanding to this. I had called down to set up an ambulance transfer earlier this morning. Our crew will be taking him back to SNF. RN to RN number give to Melissa to call in report. Dr. Kennedy to resume care as PCP once he is dismissed to SNF. Jolie called to update [facility] to the plans for him to dismiss today at 1400 via ambulance. Sister Shawna plans to update JOHN Estefani (sister) and she has my number to call if she has any questions. CM to continue to follow and assist.
--- NOTE | 2016-07-07 13:57 | NUR ---
Transfer Note: Alert and disorientedx3. Yells out frequently with incoherent speech. Does not follow commands. SBP-130s. P-100-115s. Afebrile. Room air with saturations in the upper 90s. L) chest tube removed. Gauze and silk tape applied. Changed x1 due to saturation of serosanginous fluid. Leary intact draining dark yellow urine. Geralized skin rash weeping and ulcerated. Chux placed under each extermeity. L BM this shift. Redness and ulcerations to buttocks. Morphine 2mg given x2, last dose given at 1330.
== END 2016-07-07 14:28 | DRG 273 ==
LOC: GICU 15:29 → GPCU 15:29 → GICU 06-30 10:07 → GPCU 07-01 18:50
PROVIDERS: Family Medicine; Hospitalist; Internal Medicine; Internal Medicine Hematology & Oncology; Internal Medicine Interventional Cardiology; Thoracic Surgery (Cardiothoracic Vascular Surgery); ADMIT Internal Medicine Interventional Cardiology
PROC: B246ZZZ Ultrasonography of Right and Left Heart (ICD-10-PCS; principal; 2016-06-22)
PROC: 3E0F7KZ Introduction of Other Diagnostic Substance into Respiratory Tract, Via Natural or Artificial Opening (ICD-10-PCS; 2016-06-23)
PROC: B54DZZZ Ultrasonography of Bilateral Lower Extremity Veins (ICD-10-PCS; 2016-06-23)
PROC: 06H033Z Insertion of Infusion Device into Inferior Vena Cava, Percutaneous Approach (ICD-10-PCS; 2016-06-25)
PROC: 0W9B3ZZ Drainage of Left Pleural Cavity, Percutaneous Approach (ICD-10-PCS; 2016-06-28)
PROC: 3E073KZ Introduction of Other Diagnostic Substance into Coronary Artery, Percutaneous Approach (ICD-10-PCS; 2016-06-29)
PROC: 4A02XM4 Measurement of Cardiac Total Activity, External Approach (ICD-10-PCS; 2016-06-29)
PROC: 30233N1 Transfusion of Nonautologous Red Blood Cells into Peripheral Vein, Percutaneous Approach (ICD-10-PCS; 2016-06-30)
PROC: 027F3ZZ Dilation of Aortic Valve, Percutaneous Approach (ICD-10-PCS; 2016-06-30)
PROC: B2111ZZ Fluoroscopy of Multiple Coronary Arteries using Low Osmolar Contrast (ICD-10-PCS; 2016-06-30)
PROC: 4A023N7 Measurement of Cardiac Sampling and Pressure, Left Heart, Percutaneous Approach (ICD-10-PCS; 2016-06-30)
PROC: B246ZZZ Ultrasonography of Right and Left Heart (ICD-10-PCS; 2016-06-30)
PROC: 0W9B30Z Drainage of Left Pleural Cavity with Drainage Device, Percutaneous Approach (ICD-10-PCS; 2016-07-02)
DX: I13.0 Hypertensive heart and chronic kidney disease with heart failure and stage 1 through stage 4 chronic kidney disease, or unspecified chronic kidney disease (principal); I50.23 Acute on chronic systolic (congestive) heart failure; R57.0 Cardiogenic shock; N17.9 Acute kidney failure, unspecified; J90 Pleural effusion, not elsewhere classified; G93.41 Metabolic encephalopathy; E44.0 Moderate protein-calorie malnutrition; N18.3 Chronic kidney disease, stage 3 (moderate); I42.0 Dilated cardiomyopathy; D69.49 Other primary thrombocytopenia; E27.40 Unspecified adrenocortical insufficiency; I45.2 Bifascicular block; I42.2 Other hypertrophic cardiomyopathy; D63.1 Anemia in chronic kidney disease; J44.9 Chronic obstructive pulmonary disease, unspecified; L01.03 Bullous impetigo; Z51.5 Encounter for palliative care; Z66 Do not resuscitate; I25.10 Atherosclerotic heart disease of native coronary artery without angina pectoris; E87.5 Hyperkalemia; I48.0 Paroxysmal atrial fibrillation; Z79.52 Long term (current) use of systemic steroids
CPT/HCPCS: A9539; A9540; C1725; C1751; C1760; C1769; C1779; C1894; J0171; J0461; J0696; J1160; J1250; J1265; J1644; J1720; J1940; J2250; J2270; J2370; J2543; J2720; J3010; J3475; J7030; J7040; J7050; J7512; P9016; P9047